=== PATIENT | female | born 1985 | race Caucasian/White ===

== ENCOUNTER 2019-11-24 16:54 | Emergency (ER) | payer BC ==
--- OUTSIDE RECORDS SUMMARY | 2019-11-24 16:57 | XMS REPORT ---
:1985 [facility] Address [address] [place] [address] [place] [id number] Care Team Providers Name Role Phone Unavailable Unavailable Unavailable Problems This patient has no known problems. Allergies, Adverse Reactions, Alerts This patient has no known allergies or adverse reactions. Medications This patient has no known medications. Encounters Start End Encounter Admission Attending Care Care Encounter Date/Time Date/Time Type Type Clinicians Facility Department ID 2019-03-10 2019-03-10 Emergency E [facility] [id number] 09:36:00 09:36:00 Results Test Description Test Time Test Comments Text Results Atomic Results Result Comments ENTEROVIRUS PCR 2019-06-14 09:10:00 Test Item Value Reference Range Comments ENTEROVIRUS PCR (test Negative Negative No Enteroviral RNA Detected.This test code=ENTEROVPCR) was developed and its performance characteristicsdetermined by [employer]. It has not been cleared or approvedby the Food and Drug Administration. The FDA hasdetermined that such clearance or approval is notnecessary.Performed At: [address] [id number] Gutierrez MD Ph:[phone] Spec Comments: CSF- SP FLUORO [id number] 14:17:00Patient Name: LEEROY TOMPKINS Unit No: [id number] EXAMS: CPT CODE: [id number] SP FLUORO NDL [id number] PROCEDURE: Fluoroscopic guided diagnostic lumbar puncture one view RADIOLOGIST: Real So M.D. CLINICAL INDICATION: Pseudotumor cerebri COMPARISON: 12/25/2016 LOCATION: W1 TOTAL FLUOROSCOPY TIME: 47 seconds DESCRIPTION OF PROCEDURE: The patient was prepped and draped on the fluoroscopy table in the usual sterile fashion. One-percent lidocaine was administered for local anesthesia. Using fluoroscopic guidance, a 22- gauge spinal needle was advanced into the thecal sac at L3-4. Opening pressure, obtained in the prone position, measured 8 cm of water. [id number] cc of clear spinal fluid were removed and sent to the laboratory for the requested studies. There were no periprocedural complications. IMPRESSION: Technically successful fluoroscopic guided lumbar puncture. Electronically Signed by REAL SO M.D. on at 1417 Reported and signed by: REAL SO M.D. CC: Johny Reynolds MD Technologist: Joseph Valentin Fluoro Time: DAP (Gy m2): Air Kerma (mGy): Trscr Dt/Tm: 06/09/2019 (4478) by:[email or web address] Printed Date/Time: 06/09/2019 (3227) Name: LEEROY TOMPKINS [facility] Phys: Johny Kelly MD [address] : 1985 Age: 33 Sex: F [place] [id number] Loc: P.SRG Exam Date: 06/09/2019 Status: REG [facility] PH: FAX: PAGE 1 Signed Report- SP PUNCTURE LUMBAR [id number] 14:16:00Patient Name: LEEROY TOMPKINS Unit No: [id number] EXAMS: CPT CODE: [id number] [place] [id number] PROCEDURE: Fluoroscopic guided diagnostic lumbar puncture one view RADIOLOGIST: Real So M.D. CLINICAL INDICATION: Pseudotumor cerebri COMPARISON: 12/25/2016 LOCATION: W1 TOTAL FLUOROSCOPY TIME: 47 seconds DESCRIPTION OF PROCEDURE: The patient was prepped and draped on the fluoroscopy table in the usual sterile fashion. One-percent lidocaine was administered for local anesthesia. Using fluoroscopic guidance, a 22- gauge spinal needle was advanced into the thecal sac at L3-4. Opening pressure, obtained in the prone position, measured 8 cm of water. [id number] cc of clear spinal fluid were removed and sent to the laboratory for the requested studies. There were no periprocedural complications. IMPRESSION: Technically successful fluoroscopic guided lumbar puncture. Electronically Signed by REAL SO M.D. on at 1416 Reported and signed by: REAL SO M.D. CC: Johny Reynolds MD Technologist: Joseph Santoro Time: DAP (Gy m2): Air Kerma (mGy): Trscr Dt/Tm: 06/09/2019 (1416) by:[email or web address] Printed Date/Time: 06/09/2019 (4149) Name: LEEROY TOMPKINS [facility] Phys: Johny Kelly MD [address] : 1985 Age: 33 Sex: F [place] [id number] Loc: P.SRG Exam Date: 06/09/2019 Status: REG [facility] PH: FAX: PAGE 1 Signed ReportBASIC METABOLIC [id number] 12:19:00 Test Item Value Reference Range Comments SODIUM (test code=NA) 141 MMOL/L 136-143 POTASSIUM (test code=K) 4.2 MMOL/L 3.5-5.1 CHLORIDE (test code=CL) 105 MMOL/L 98-107 CARBON DIOXIDE (test 27 mmol/L 24-31 code=CO2) GLUCOSE (test code=GLU) 79 mg/dL 70-104 BLOOD UREA NITROGEN (test 8.6 MG/DL 7.0-21.0 code=BUN) GLOMERULAR FILTRATION >=60 max estimate >60 The estimated glomerular RATE (test code=GFR) filtration rate is computed usingpatient race, age (>18), sex, and serum creatinine. If anyof the needed data elements are missing the Laboratory cannot compute an estimation of the glomerular filtration rate. CREATININE (test 0.8 mg/dL 0.8-1.5 code=CREAT) CALCIUM (test code=CA) 9.0 mg/dL 8.8-10.2 Spec Comments: PREOPDATE OF LAST MENSTRUAL PERIOD: 05/20/19HCG SERUM [id number] 12:19:00 Test Item Value Reference Range Comments HCG SERUM QUAL (test code=HCGQL) NEGATIVE NEGATIVE Spec Comments: PREOPDATE OF LAST MENSTRUAL PERIOD: 05/20/19BASIC METABOLIC [id number] 12:18:00 Test Item Value Reference Range Comments SODIUM (test code=NA) 141 MMOL/L 136-143 POTASSIUM (test code=K) 4.2 MMOL/L 3.5-5.1 CHLORIDE (test code=CL) 105 MMOL/L 98-107 CARBON DIOXIDE (test 27 mmol/L 24-31 code=CO2) GLUCOSE (test code=GLU) 79 mg/dL 70-104 BLOOD UREA NITROGEN (test 8.6 MG/DL 7.0-21.0 code=BUN) GLOMERULAR FILTRATION >=60 max estimate >60 The estimated glomerular RATE (test code=GFR) filtration rate is computed usingpatient race, age (>18), sex, and serum creatinine. If anyof the needed data elements are missing the Laboratory cannot compute an estimation of the glomerular filtration rate. CREATININE (test 0.8 mg/dL 0.8-1.5 code=CREAT) CALCIUM (test code=CA) 9.0 mg/dL 8.8-10.2 Spec Comments: PREOPDATE OF LAST MENSTRUAL PERIOD: 05/20/19HCG SERUM [id number] 12:18:00 Test Item Value Reference Range Comments HCG SERUM QUAL (test code=HCGQL) NEGATIVE Spec Comments: PREOPDATE OF LAST MENSTRUAL PERIOD: 05/20/19CBC W/AUTO [id number] 12:04:00 Test Item Value Reference Range Comments WHITE BLOOD CELL (test code=WBC) 4.8 x10 3/uL 4.8-10.8 RED BLOOD CELL (test code=RBC) 4.39 x10 6/uL 4.20-5.40 HEMOGLOBIN (test code=HGB) 13.4 g/dL 14.5-20 HEMATOCRIT (test code=HCT) 40.3 % 37.0-47.0 MEAN CELL VOLUME (test code=MCV) 91.8 fL 81.0-99.0 MEAN CELL HGB (test code=MCH) 30.5 pg 27-31 MEAN CELL HGB CONCENTRATION (test code=MCHC) 33.3 G/DL 33-36.5 RED CELL DISTRIBUTION WIDTH (test code=RDW) 11.8 % 12.9-16.9 PLATELET COUNT (test code=PLT) 258 150-440 MEAN PLATELET VOLUME (test code=MPV) 10.9 fL 8.9-12.4 NEUTROPHIL % (test code=NT%) 49.5 % 42.2-75.2 LYMPHOCYTE % (test code=LY%) 40.3 % 20.5-51.1 MONOCYTE % (test code=MO%) 7.1 % 1.7-9.3 EOSINOPHIL % (test code=EO%) 2.5 % 0.0-7.0 BASOPHIL % (test code=BA%) 0.4 % 0-2.5 NEUTROPHIL # (test code=NT#) 2.36 x10 3/uL 1.80-7.70 LYMPHOCYTE # (test code=LY#) 1.92 x10 3/uL 1.00-4.80 MONOCYTE # (test code=MO#) 0.34 x10 3/uL 0.00-0.80 EOSINOPHIL # (test code=EO#) 0.12 x10 3/uL 0.00-0.45 BASOPHIL # (test code=BA#) 0.02 x10 3/uL 0.0-0.20 CT BRAIN [id number] 17:11:15CLINICAL INDICATION: G43.909 Migraine, unsp, not intractable, without status migrainosusMODALITY: [employer] CT (Iterative dose reduction techniques are utilized.) TECHNIQUE: Noncontrast CT scanning was obtained through the brain. No intravenous contrast was administered. Brain and soft tissue windows are formatted. 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 The right lateral ventricle is slightlypreferentially decompressed. Ventricular size is slightly decreased to stable when compared to priorMRI before shunting. Note that there was no ventriculomegaly before shunting.There are no acute infarcts, hemorrhages or extra-axial fluid collections.There are no mass lesions. There are no focal areas of edema or shift of midline structures.There are no significant white matter lesions.Sella, parasellar structures, craniocervical junction and internal auditory canals are within normal limits on noncontrast CT imaging.The brainstem and cerebellum are unremarkable.Extracranial soft tissues are unremarkable.
[2019-11-24 18:52] LABS: ALT/SGPT 25 U/L (12-78); AST/SGOT 14 U/L (15-37); Albumin 3.5 g/dL (3.4-5.0); Alkaline Phosphatase 61 U/L (45-117); BUN Blood Urea Nitrogen 17 mg/dL (7-18); Bicarbonate 26 mmol/L (21-32); Bilirubin Direct < 0.1 mg/dL (0-0.2); Bilirubin Total 0.2 mg/dL (0.2-1.0); Glucose Level 78 mg/dL (74-106); Lipase 218 U/L (73-393); Potassium 3.5 mmol/L (3.5-5.1); Protein, Total 7.5 g/dL (6.4-8.2); Sodium Level 142 mmol/L (136-145)
[2019-11-24 18:58] LABS: Absolute Lymphocytes (CBC) 3.1 K/uL (0.7-4.9); Basophils % 0.8 % (0-1.3); Hematocrit 42.4 % (36.0-45.0); Lymphocytes % 42.5 % (15.3-44.8); MPV 8.9 fL (7.6-11.3); RBC Red Blood Cell Count 4.71 M/uL (3.86-4.86)
[2019-11-24 19:07] LABS: Urine Blood NEGATIVE (NEG); Urine Glucose NEGATIVE (NEG); Urine Protein NEGATIVE (NEG); Urine Specific Gravity 1.025 (1.005-1.030); Urine pH 5.5 (5.0-7.0)
[2019-11-24] MEDS ORDERED: ONDANSETRON 4 MG/2 ML VIAL ONE (19:31)
[2019-11-24] MEDS ORDERED: MORPHINE 4 MG/ML SYR ONE (19:31)
[2019-11-24 19:47] LABS: Blood Morphology Comment NOT SEEN (NOT SEEN); Platelet Estimate ADEQ
--- NOTE | 2019-11-24 22:10 | EDPHYS ---
Physician Documentation [facility] Name: Kamille Bojorquez Age: 34 yrs Sex: Female : 1985 Arrival Date: 11/24/2019 Time: 16:56 Bed 26 Private MD: ED Physician Nik Goldstein HPI: 11/24 18:09 This 34 yrs old Female presents to ER via Ambulatory with complaints of pm1 Abdominal Pain. 18:09 The patient presents with abdominal pain. pm1 18:09 Onset: The symptoms/episode began/occurred 2-3 months ago and worse the past few days pm1 with nausea, vomiting, and diarrhea. Patient noticed that pain is worse after eating food. The symptoms do not radiate. Associated signs and symptoms: Pertinent positives: nausea, vomiting, and diarrhea, Pertinent negatives: chest pain, dysuria, fever, shortness of breath. The symptoms are described as crampy. Modifying factors: The symptoms are alleviated by nothing, the symptoms are aggravated by food. Severity of pain: in the emergency department the pain has improved. The patient has not recently seen a physician. 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 - Social history:: Smoking status: Patient/guardian denies using tobacco. - Ebola Screening: : No symptoms or risks identified at this time. ROS: 18:09 Constitutional: Negative for fever, chills, and weight loss, Eyes: Negative for injury, pm1 pain, redness, and discharge, ENT: Negative for injury, pain, and discharge, Neck: Negative for injury, pain, and swelling, Cardiovascular: Negative for chest pain, palpitations, and edema, Respiratory: Negative for shortness of breath, cough, wheezing, and pleuritic chest pain. 18:09 Back: Negative for injury and pain, : Negative for injury, bleeding, discharge, and swelling, MS/Extremity: Negative for injury and deformity, Skin: Negative for injury, rash, and discoloration, Neuro: Negative for headache, weakness, numbness, tingling, and seizure. 18:09 Abdomen/GI: Positive for abdominal pain, nausea, vomiting, and diarrhea, Negative for constipation. Exam: 18:09 Constitutional: This is a well developed, well nourished patient who is awake, alert, pm1 and in no acute distress. Head/Face: Normocephalic, atraumatic. Neck: Trachea midline, no thyromegaly or masses palpated, and no cervical lymphadenopathy. Supple, full range of motion without nuchal rigidity, or vertebral point tenderness. No Meningismus. Chest/axilla: Normal chest wall appearance and motion. Nontender with no deformity. No lesions are appreciated. Cardiovascular: Regular rate and rhythm with a normal S1 and S2. No gallops, murmurs, or rubs. Normal PMI, no JVD. No pulse deficits. Respiratory: Lungs have equal breath sounds bilaterally, clear to auscultation and percussion. No rales, rhonchi or wheezes noted. No increased work of breathing, no retractions or nasal flaring. 18:09 Back: No spinal tenderness. No costovertebral tenderness. Full range of motion. Skin: Warm, dry with normal turgor. Normal color with no rashes, no lesions, and no evidence of cellulitis. MS/ Extremity: Pulses equal, no cyanosis. Neurovascular intact. Full, normal range of motion. 18:09 Abdomen/GI: Inspection: abdomen appears normal, Bowel sounds: normal, Palpation: soft, mild abdominal tenderness, in the right upper quadrant, mass, is not appreciated, rebound tenderness, is not appreciated. 18:09 Neuro: Orientation: is normal, Mentation: is normal, Motor: moves all fours. Vital Signs: 17:01 BP 133 / 97; Pulse 80; Resp 16 S; Temp 98.5(O); Pulse Ox 100% on R/A; Weight 104.33 kg aa5 (R); Height 5 ft. 5 in. (165.10 cm) (R); Pain 4/10; 18:36 BP 142 / 96; Pulse 78; Resp 17; Pulse Ox 100% on R/A; rv 19:07 BP 135 / 96; Pulse 79; Resp 18; Pulse Ox 100% on R/A; mg2 20:43 Pulse 70; Resp 18; Pulse Ox 100% on R/A; mg2 17:01 Body Mass Index 38.27 (104.33 kg, 165.10 cm) aa5 MDM: 18:07 Patient medically screened. kay 22:08 Data reviewed: vital signs. Data interpreted: Pulse oximetry: on room air is 100 %. pm1 Interpretation: normal. Counseling: I had a detailed discussion with the patient and/or guardian regarding: the historical points, exam findings, and any diagnostic results supporting the discharge/admit diagnosis, lab results, radiology results, the need for outpatient follow up, for definitive care, a operations clerk, to return to the emergency department if symptoms worsen or persist or if there are any questions or concerns that arise at home. 11/24 18:06 Order name: Basic Metabolic Panel pm1 11/24 18:06 Order name: CBC with Diff pm1 11/24 18:06 Order name: Creatinine for Radiology; Complete Time: 18:52 pm1 11/24 18:06 Order name: Hepatic Function; Complete Time: 18:52 pm1 11/24 18:06 Order name: Lipase; Complete Time: 18:52 pm1 11/24 18:07 Order name: Basic Metabolic Panel; Complete Time: 18:52 EDMS 11/24 18:07 Order name: CBC with Automated Diff; Complete Time: 21:41 EDMS 11/24 18:45 Order name: Urine Dipstick--Ancillary (enter results); Complete Time: 19:22 eb 11/24 18:45 Order name: Urine --Ancillary (enter results); Complete Time: 19:22 eb 11/24 19:47 Order name: Manual Differential; Complete Time: 21:41 EDMS 11/24 20:35 Order name: CT Abd/Pelvis - Without Contrast pm1 11/24 20:37 Order name: US Abdomen Limited pm1 11/24 18:06 Order name: IV Saline Lock; Complete Time: 18:34 pm1 11/24 18:06 Order name: Labs collected and sent; Complete Time: 18:34 pm1 11/24 18:06 Order name: Urine Dipstick-Ancillary (obtain specimen); Complete Time: 18:34 pm1 11/24 18:06 Order name: Urine Test (obtain specimen); Complete Time: 18:34 pm1 Administered Medications: 19:33 Drug: Zofran 4 mg Route: IVP; Site: left antecubital; mg2 20:30 Follow up: Response: No adverse reaction; Marked relief of symptoms mg2 19:34 Drug: morphine 4 mg Route: IVP; Site: left antecubital; mg2 20:30 Follow up: Response: No adverse reaction; Marked relief of symptoms mg2 22:22 Drug: GI Cocktail without - (Maalox Suspension 30 ml, Lidocaine Liquid 2 % 15 aa1 ml) Route: PO; 22:32 Follow up: Response: No adverse reaction; Medication administered at discharge. aa1 Disposition: 11/24/19 22:09 Discharged to Home. Impression: Unspecified abdominal pain. - Condition is Fair. - Discharge Instructions: Abdominal Pain, Adult. - Prescriptions for Bentyl 20 mg Oral Tablet - take 1 tablet by ORAL route every 6 hours As needed; 20 tablet. Pepcid 20 mg Oral Tablet - take 1 tablet by ORAL route every 12 hours for 10 days; 20 tablet. - Medication Reconciliation Form, Thank You Letter, Antibiotic Education, Prescription Opioid Use form. - Follow up: Emergency Department; When: As needed; Reason: Worsening of condition. Follow up: Private Physician; When: 2 - 3 days; Reason: Recheck today's complaints, Continuance of care, Re-evaluation by your physician. - Problem is new. - Symptoms have improved. Addendum: 11/27/2019 08:17 Co-signature as Attending Physician, Nik Goldstein MD I agree with the assessment and c palacios plan of care. Signatures: Dispatcher [employer] EDMS Yanet Kaplan RN RN aa1 Nik Goldstein MD MD cha Calderon, Audri, RN RN aa5 Caleb Last NP ARRANGING FUNERAL DIRECTOR pm1 Frankie Thacker RN RN mg2 Corrections: (The following items were deleted from the chart) 11/24 22:33 22:09 11/24/2019 22:09 Discharged to Home. Impression: Unspecified abdominal pain. aa1 Condition is Fair. Forms are Medication Reconciliation Form, Thank You Letter, Antibiotic Education, Prescription Opioid Use. Follow up: Emergency Department; When: As needed; Reason: Worsening of condition. Follow up: Private Physician; When: 2 - 3 days; Reason: Recheck today's complaints, Continuance of care, Re-evaluation by your physician. Problem is new. Symptoms have improved. pm1
--- NOTE | 2019-11-24 22:10 | ER ---
Nurse's Notes [facility] Name: Kamille Bojorquez Age: 34 yrs Sex: Female : 1985 Arrival Date: 11/24/2019 Time: 16:56 Bed 26 Private MD: Diagnosis: Unspecified abdominal pain Presentation: 11/24 16:59 Presenting complaint: Patient states: RUQ pain that began months ago but getting worse aa5 over the last week. Pt also reports nausea/vomiting began 2 days ago, also reports some diarrhea. Transition of care: patient was not received from another setting of care. Onset of symptoms was October 2019. Risk Assessment: Do you want to hurt yourself or someone else? Patient reports no desire to harm self or others. Initial Sepsis Screen: Does the patient meet any 2 criteria? No. Patient's initial sepsis screen is negative. Does the patient have a suspected source of infection? No. Patient's initial sepsis screen is negative. Care prior to arrival: None. 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 - Social history:: Smoking status: Patient/guardian denies using tobacco. - Ebola Screening: : No symptoms or risks identified at this time. Screenin:35 Abuse screen: Denies threats or abuse. Denies injuries from another. Nutritional rv screening: No deficits noted. Tuberculosis screening: No symptoms or risk factors identified. Fall Risk None identified. Assessment: 18:35 General: Appears in no apparent distress. comfortable, Behavior is calm, cooperative. rv Pain: Complains of pain in abdomen. Neuro: Level of Consciousness is awake, alert, obeys commands, Oriented to person, place, time, situation. Cardiovascular: Patient's skin is warm and dry. Respiratory: Airway is patent. GI: Bowel sounds present X 4 quads. Abd is soft and non tender X 4 quads. 19:34 Reassessment: Patient appears in no apparent distress at this time. Patient and/or mg2 family updated on plan of care and expected duration. Pain level reassessed. Patient is alert, oriented x 3, equal unlabored respirations, skin warm/dry/pink. patient in pain. pain medicine given. 20:43 Reassessment: Patient appears in no apparent distress at this time. Patient and/or mg2 family updated on plan of care and expected duration. Pain level reassessed. Patient is alert, oriented x 3, equal unlabored respirations, skin warm/dry/pink. patient informed the order for ct scan. she agreed. 22:33 Reassessment: Patient appears in no apparent distress at this time. Patient is alert, aa1 oriented x 3, equal unlabored respirations, skin warm/dry/pink. Discussed d/c \T\ f/u instructions with pt; denies questions or concerns at this time. Ambulatory to lobby with steady gait. Vital Signs: 17:01 BP 133 / 97; Pulse 80; Resp 16 S; Temp 98.5(O); Pulse Ox 100% on R/A; Weight 104.33 kg aa5 (R); Height 5 ft. 5 in. (165.10 cm) (R); Pain 4/10; 18:36 BP 142 / 96; Pulse 78; Resp 17; Pulse Ox 100% on R/A; rv 19:07 BP 135 / 96; Pulse 79; Resp 18; Pulse Ox 100% on R/A; mg2 20:43 Pulse 70; Resp 18; Pulse Ox 100% on R/A; mg2 17:01 Body Mass Index 38.27 (104.33 kg, 165.10 cm) aa5 ED Course: 16:56 Patient arrived in ED. jg7 16:59 Arm band placed on. aa5 17:00 Triage completed. aa5 18:06 Caleb Last NP is PHCP. pm1 18:06 Nik Goldstein MD is Attending Physician. pm1 18:30 Frankie Thacker RN is Primary Nurse. mg2 18:34 Inserted saline lock: 22 gauge in left antecubital area, using aseptic technique. Blood rv collected. Missed attempt(s): 20 gauge in right antecubital area. 18:36 Patient has correct armband on for positive identification. Pulse ox on. NIBP on. rv 19:07 No provider procedures requiring assistance completed. mg2 20:00 Basic Metabolic Panel Sent. jp3 20:00 CBC with Diff Sent. jp3 21:00 US Abdomen Limited In Process Unspecified. EDMS 21:00 CT Abd/Pelvis - Without Contrast In Process Unspecified. EDMS 22:33 IV discontinued, intact, bleeding controlled, No redness/swelling at site. Pressure aa1 dressing applied. Administered Medications: 19:33 Drug: Zofran 4 mg Route: IVP; Site: left antecubital; mg2 20:30 Follow up: Response: No adverse reaction; Marked relief of symptoms mg2 19:34 Drug: morphine 4 mg Route: IVP; Site: left antecubital; mg2 20:30 Follow up: Response: No adverse reaction; Marked relief of symptoms mg2 22:22 Drug: GI Cocktail without - (Maalox Suspension 30 ml, Lidocaine Liquid 2 % 15 aa1 ml) Route: PO; 22:32 Follow up: Response: No adverse reaction; Medication administered at discharge. aa1 Outcome: 22:09 Discharge ordered by . pm1 22:33 Discharged to home ambulatory. aa1 22:33 Condition: good 22:33 Discharge instructions given to patient, Instructed on discharge instructions, follow up and referral plans. medication usage, Demonstrated understanding of instructions, follow-up care, medications, Prescriptions given X 2. 22:33 Patient left the ED. aa1 Signatures: Dispatcher [employer] EDRI Yanet Kaplan RN RN aa1 Mary Chance RN RN aa5 Caleb Last, [employer]PER [employer] pm1 Frankie Thacker RN RN mg2 Rubén Manzano RN RN rv Sanchez Mazariegos jp3 Stacy Hatchg7
[2019-11-24] MEDS ORDERED: MAGNE/ALUM HYDROXD 30 ML UCUP ONE (22:25)
[2019-11-24] MEDS ORDERED: LIDOCAINE VISCOUS 2% SOLN 15 ML UDC ONE (22:25)
[2019-11-24 23:21] VITALS: TEMP 98.5; O2SAT 100
[2019-11-24 23:23] VITALS: BP 135/96
--- NOTE | 2019-11-25 07:52 | RAD REPORT ---
EXAM DESCRIPTION: US - Abdomen Exam Limited - 11/24/2019 8:59 pm CLINICAL HISTORY: RUQ pain COMPARISON: Abdomen Pelvis Wo Contrast dated 11/24/2019 FINDINGS: No gallstones, sludge or other abnormalities within the gallbladder lumen. There is no wal l thickening or pericholecystic fluid. No common duct stone or biliary tree dilatation identified. IMPRESSION: Normal gallbladder and biliary tree ultrasound.
--- NOTE | 2019-11-27 11:18 | RAD REPORT ---
EXAM DESCRIPTION: CT - Abdomen Pelvis Wo Contrast - 11/25/2019 8:16 am CLINICAL HISTORY: ABD PAIN TECHNIQUE: Axial computed tomography images of the abdomen and pelvis without intravenous contrast. Sagittal and coronal reformatted images were created and reviewed. This CT exam was performed usi ng one or more of the following dose reduction techniques: automated exposure control, adjustment o f the mA and/or kV according to patient size, and/or use of iterative reconstruction technique. COMPARISON: No relevant prior studies available. FINDINGS: Lung bases: Unremarkable. No mass. No consolidation. ABDOMEN: Liver: Unremarkable. Gallbladder and bile ducts: Unremarkable. No calcified stones. No ductal dilation. Pancreas: Unremarkable. No ductal dilation. Spleen: Unremarkable. No splenomegaly. Adrenals: Unremarkable. No mass. Kidneys and ureters: Unremarkable. No obstructing stones. No hydronephrosis. Stomach and bowel: Gastric bypass changes present. No obstruction. No mucosal thickening. PELVIS: Appendix: The appendix is well-seen and appears normal. Bladder: Unremarkable. No stones. Reproductive: There is a 2.4 x 2.4 x 2.6 cm right ovarian cyst. ABDOMEN and PELVIS: Intraperitoneal space: Unremarkable. No free air. No significant fluid collection. Bones/joints: No acute fracture. No dislocation. Soft tissues: Unremarkable. Vasculature: Unremarkable. No abdominal aortic aneurysm. Lymph nodes: Unremarkable. No enlarged lymph nodes. Tubes, lines and devices: There is a peritoneal shunt in the right upper quadrant. No fluid co llection noted adjacent to the tip. IMPRESSION: 1. There is a 2.4 x 2.4 x 2.6 cm right ovarian cyst. No further evaluation needed. 2. No inflammatory process noted. Electronically signed by: Anisha Reece MD 11/24/2019 9:37 PM [employer]CTOR [employer]IC [employer] Due to temporary technical issues with the PACS/Fluency reporting system, reports are being signed by the in house radiologist as a courtesy to ensure prompt reporting. The interpreting radiologist is f maloriely responsible for the content of the report.
== END 2019-11-24 22:33 | disposition home or self-care (01) ==
LOC: ER 16:54
DX: R10.9 Unspecified abdominal pain (principal); R11.2 Nausea with vomiting, unspecified
CPT/HCPCS: 85025; 80048; 36415; 81025; 80076; 81003; 83690; 74176; 76705; 96375; 96374; 99284; J2405

== ENCOUNTER 2023-04-12 13:55 | Emergency (ER) | payer BC ==
--- OUTSIDE RECORDS SUMMARY | 2023-04-12 14:00 | XMS REPORT | Continuity of Care Document ---
:1985 Author Organization [facility] t Address [address] [place] [address] [place] [id number] Care Team Providers Name Role Phone Mala Callaway MD Primary Care Physician JOHN_Rik Attending Clinician Unavailable STEPHANIE_XAVIER_Rashard_William Attending Clinician Unavailable Kathia Dalton Attending Clinician [phone] Mala Callaway Attending Clinician [phone] Preethi Wetzel Attending Clinician [phone] JOHN_Rik Admitting Clinician Unavailable STEPHANIE_XAVIER_Rashard_William Admitting Clinician Unavailable Payers Payer Name Policy Type Policy Number Effective Date Expiration Date S hen[place] [id number] 2017 00:00:00 [place]: [employer] [id number] [facility] ACCESS Problems Condition Condition Condition Status Onset Resolution Last Treating Co mments Source Name Details Category Date Date Treatment Clinician Date Xerostomia Xerostomia Problem Active S [facility] 2-15 [facility] 00:00: ty [facility] Pain of Pain of Problem Active [place] skin Skin 2-15 Communi 00:00: ty 00 [facility] Neck pain Neck Pain Problem Active [facility] nicola 1-05 [facility]i 00:00: ty 00 [facility] 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 00:00: ty disorder [facility] Insomnia Insomnia Problem Active [facility] 1-13 Communi 00:00: ty 00 [facility] Long-term Long-term Problem Active [facility] drug Drug 9-23 Communi therapy Therapy 00:00: ty 00 [facility] Pain in Pain in Problem Active [place] right hand Right Hand 6-15 Co mmuni 00:00: ty 00 [facility] Cellulitis Cellulitis Problem Active 2019-11 S [facility]en[facility] 0-06 Communi 00:00: ty 00 [facility] Allergic Allergic Problem Active 2019-11 [facility] reaction Reaction 0-06 Commun i 00:00: ty 00 [facility] Palpitatio Palpitatio Problem Active [facility] ns ns 6-23 [facility]i 00:00: ty [facility] Essential Essential Problem Active [facility] hypertensi Hypertensi 6-18 Co m[facility]i on on 00:00: ty 00 [facility] Headache Headache Problem Active [facility] y 6-18 Communi 00:00: ty 00 [facility] 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 6-18 Co m[facility]i intracrani Intracrani 00:00: ty al al 00 Hospita hypertensi Hypertensi l on on Clinics Nausea Nausea Problem Active [place] 1-21 Communi 00:00: ty 00 [facility] Diarrhea Diarrhea Problem Active [facility] 1-21 Communi 00:00: ty 00 [facility] Right Right Problem Active [place] upper Upper 1-21 Communi quadrant Quadrant 00:00: ty pain Pain 00 [facility] Cough Cough Problem Active 2018-11 [place] 2-31 Communi 00:00: ty 00 [facility] Electrocar Electrocar Problem Active 2019- S [facility] diogram diogram 1-25 Communi abnormal Abnormal 00:00: ty 00 [facility] 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 1-01 st al al 00:00: Hospita hypertensi hypertensi 00 l on on Low back Low Back Problem Active [facility] pain Pain 9-10 Communi 00:00: ty 00 Hospita l Clinics Acute Acute Problem Active [place] pharyngiti Pharyngiti 4-22 Co mmuni s s 00:00: ty 00 [facility] Subjective Subjective Problem Active [facility] visual Visual 08-11 Medical disturbanc Disturbanc 00:00: e e 00 Photopsia Photopsia Problem Active [facility] via 08-11 Medical 00:00: 00 Localized Localized Problem Active [facility] visual Visual 08-11 Medical field Field 00:00: defect Defect 00 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 Disorder 08-11 Medica l 00:00: 00 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 Malfunctio 00 n n Retinal Retinal Problem Active [facility] venous Venous 4-14 Medical engorgemen Engorgemen 00:00: t t 00 Physiologi Physiologi Problem Active [facility] c c 4-14 Medical anisocoria Anisocoria 00:00: 00 Tinnitus Tinnitus Problem Active [facility] 1-11 Medical 00:00: 00 Dizziness Dizziness Problem Active [facility] via 11-25 Medical 00:00: 00 Nerve Nerve Problem Active 2015-11 [facility] fiber Fiber 12-24 Medical bundle Bundle 00:00: defect Defect 00 Diplopia Diplopia Problem Active 2015-11 [facility] 2- Medical 00:00: 00 Dry eyes Dry Eyes Problem Active 2015-11 [facility] 2- Medical 00:00: 00 Papilledem Papilledem Problem Active 2015-11 [facility] a - optic a - Optic - Medi felisha disc edema Disc Edema 00:00: due to Due to 00 raised Raised intracrani Intracrani al al pressure Pressure Bilateral Bilateral Problem Active 2015-11 [facility] via tinnitus Tinnitus 12-24 Medica l 00:00: 00 Optic disc Optic Disc Problem Active 2015-11 [facility] edema Edema 0- Medical 00:00: 00 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 [facility]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 Intracrani 0-05 Me dical al al 00:00: hypertensi Hypertensi 00 on on 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 0-05 Me dical 00:00: 00 Hazy Hazy Problem Active 2015-11 [facility] vision Vision 0-05 Medical 00:00: 00 Disorder Disorder Problem Active 2015-11 [facility] of optic of Optic 0-05 Medica l nerve Nerve 00:00: 00 Convergenc Convergenc Problem Active 2015-11 [facility] e e 0-05 Medical insufficie Insufficie 00:00: ncy ncy 00 Eyes Eyes Problem Active 2015-11 [facility] sensitive Sensitive 0-05 Medi felisha to light to Light 00:00: 00 Headache Headache Problem Active 2015-11 [facility] 0-05 Medical 00:00: 00 Allergies, Adverse Reactions, Alerts Allergy Allergy Status Severity Reaction(s) Onset Inactive Treating Comm ents Source Name Type Date Date Clinician Iodinate Propensi Active Anaphylaxis 2018-11 M ethodi d ty to 11-29 st Contrast adverse 00:00: Hospita Media reaction 00 l s to drug Iodine Propensi Active Other (See IV Meth rafa And ty to Comments) 06-16 iodine- st Iodide adverse 00:00: itching Hospita Containi reaction 00 and l ng s to swelling Products drug (per pt only IV) Sulfa Propensi Active Rash [facility] (Sulfona ty to 06-16 st mide adverse 00:00: Hospita Antibiot reaction 00 l ics) s to drug Sulfamet Propensi Active Rash Method i hoxazole ty to 3-10 st -Trimeth adverse 00:00: Hospita oprim reaction 00 l s to drug IODINATE Allergy Active Fatal Anaphylaxis [place] D to Communi CONTRAST substanc ty MEDIA e Hospita l Clinics SULFA Allergy Active Moderate Rash [place] (SULFONA to to severe Commu ni MIDE substanc ty ANTIBIOT e Hospita ICS) l Clinics Bactrim Allergy Active [facility] to Medical substanc e Iodine Allergy Active [facility] to Medical substanc e Family History Family Member Diagnosis Comments Start Date Stop Date Source Natural mother Pulmonary embolism [facility] Natural mother Hypertension [facility] Natural father Hemochromatosis [facility] Natural father Hyperlipidemia Method [facility] Natural father Hypertension [facility] Social History Social Habit Start Date Stop Date Quantity Comments Source Gender [facility] Sexual orientation [facility] Alcohol intake 2019-09-29 2019-09-29 Lifetime [facility] 00:00:00 00:00:00 non-drinker Hospital (finding) History of Social 2019-09-29 2019-09-[address] function 00:00:00 00:00:00 Hospital Tobacco use and 2019-06-16 2019-06-16 Smokeless [facility] exposure 00:00:00 00:00:00 tobacco non-user Hospital Sex Assigned At [birth year] [facility] 00:[facility] Smoking Status Start Date Stop Date Source Never smoked tobacco [facility] Medications Ordered Filled Start Stop Current Ordering Indication Dosage Frequency Signature Comments Components Source Medication Medication Date Date Medication? Clinician (SIG) Name Name testosteron testosteron No testostero [place] e 100 mg e 100 mg 07-16 ne 100 mg Co [facility] implant implant 09:53: implant ty pelletTake pelletTake 06 pelletTake Hospita 162.5 mg by 162.5 mg by 162.5 mg l implantatio implantatio by C linics n route. n route. implantati on route. norethindro 2018-11 Yes QD Take by Met hodi ne-e.estrad 1-[address] iol-iron 11:03: nightly. Hospi ta (BLISOVI 24 17 l FE ORAL) ALPRAZolam 2018-11 Yes .5mg Take 0.5 Met hodi (XANAX) 0.5 1-[address] MG tablet 11:03: mouth as Hosp edmund 17 needed for l anxiety. ibuprofen ibuprofen No ibuprofen [facility] 800mg once 800mg once 9-27 800mg once Medical a day a day 00:00: a day 00 ondansetron ondansetron No ondansetro [place] HCl 8 mg HCl 8 mg n HCl 8 mg C ommuni tablet Take tablet Take tablet ty 1 tablet 1 tablet Take 1 Hospi ta every 8 every 8 tablet l hours by hours by every 8 Clin ics oral route oral route hours by as needed. as needed. oral route as needed. topiramate topiramate No topiramate [place] 50 mg 50 mg 50 mg Communi tablet TAKE tablet TAKE tablet ty ONE (1) ONE (1) TAKE ONE Hospi ta TABLET(S) TABLET(S) (1) l BY MOUTH BY MOUTH TABLET(S) Cl inics TWICE A DAY TWICE A DAY BY MOUTH WITH MEALS. WITH MEALS. TWICE A DAY WITH MEALS. Volnea (28) Volnea (28) No Volnea [place] 0.15 0.15 (28) 0.15 Communi mg-0.02 mg mg-0.02 mg mg-0.02 mg ty (21)/0.01 (21)/0.01 (21)/0.01 Hospita mg (5) mg (5) mg (5) l tablet tablet tablet Clinics alprazolam alprazolam No alprazolam [place] 0.5 mg 0.5 mg 0.5 mg Communi tablet TAKE tablet TAKE tablet ty ONE (1) ONE (1) TAKE ONE Hospi ta TABLET(S) TABLET(S) (1) l BY MOUTH BY MOUTH TABLET(S) Cl inics ONCE A DAY ONCE A DAY BY MOUTH NEEDED. NEEDED. ONCE A DAY NEEDED. benzonatate benzonatate No benzonatat [place] 100 mg 100 mg e 100 mg Communi capsule capsule capsule ty TAKE ONE TAKE ONE TAKE ONE Hos felipe (1) (1) (1) l CAPSULE(S) CAPSULE(S) CAPSULE(S) Clinics BY MOUTH BY MOUTH BY MOUTH THREE TIMES THREE TIMES THREE A DAY. A DAY. TIMES A DAY. budesonide- budesonide- No budesonide [place] formoterol formoterol -formotero Communi HFA 80 HFA 80 l HFA 80 ty mcg-4.5 mcg-4.5 mcg-4.5 Hospit a mcg/actuati mcg/actuati mcg/actuat l on aerosol on aerosol ion Cli nics inhaler inhaler aerosol INHALE 2 INHALE 2 inhaler PUFFS TWICE PUFFS TWICE INHALE 2 A DAY BY A DAY BY PUFFS INHALATION INHALATION TWICE A ROUTE FOR ROUTE FOR DAY BY 30 DAYS. 30 DAYS. INHALATION ROUTE FOR 30 DAYS. cyclobenzap cyclobenzap No cyclobenza [place] rine 10 mg rine 10 mg rosa 10 Communi tablet TAKE tablet TAKE mg tablet ty ONE (1) ONE (1) TAKE ONE Hospi ta TABLET(S) TABLET(S) (1) l BY MOUTH AT BY MOUTH AT TABLET(S) Clinics BEDTIME. BEDTIME. BY MOUTH AT BEDTIME. hydrocortis hydrocortis No hydrocorti [place] one 2.5 % one 2.5 % sone 2.5 % Communi topical topical topical ty cream APPLY cream APPLY cream Hospita A THIN A THIN APPLY A l LAYER TO LAYER TO THIN LAYER C linics AFFECTED AFFECTED TO AREA(S) AREA(S) AFFECTED TWICE TWICE AREA(S) DAILY. DO DAILY. DO TWICE NOT USE ON NOT USE ON DAILY. DO FACE. FACE. NOT USE ON FACE. magnesium magnesium No magnesium [place] phosphate phosphate phosphate Communi 400mg daily 400mg daily 400mg ty daily Hospita l Clinics Medrol Medrol No Medrol [place] ([place]) 4 mg (Chapito) 4 mg ([place]) 4 mg Communi tablets in tablets in tablets in ty a dose pack a dose pack a dose Hospita as directed as directed pack as l on package on package directed Clinics on package metoprolol metoprolol No metoprolol [place] succinate succinate succinate Communi ER 100 mg ER 100 mg ER 100 mg ty tablet,exte tablet,exte tablet,ext Hospita nded nded ended l release 24 release 24 release 24 Clinics hr TAKE 2 hr TAKE 2 hr TAKE 2 TABLETS BY TABLETS BY TABLETS BY MOUTH EVERY MOUTH EVERY MOUTH DAY DAY EVERY DAY ondansetron ondansetron No ondansetro [place] 8 mg 8 mg n 8 mg Communi disintegrat disintegrat disintegra ty ing tablet ing tablet ting Hos felipe DISSOLVE DISSOLVE tablet l ONE (1) ONE (1) DISSOLVE Clini cs TABLET(S) TABLET(S) ONE (1) BY MOUTH BY MOUTH TABLET(S) TWICE A DAY TWICE A DAY BY MOUTH NEEDED. NEEDED. TWICE A DAY NEEDED. ondansetron ondansetron No ondansetro [place] HCl 8 mg HCl 8 mg n HCl 8 mg C om[facility]i tablet Take tablet Take tablet ty 1 tablet 1 tablet Take 1 Hospi ta every 8 every 8 tablet l hours by hours by every 8 Clin ics oral route oral route hours by as needed. as needed. oral route as needed. topiramate topiramate No topiramate [place] 50 mg 50 mg 50 mg Communi tablet TAKE tablet TAKE tablet ty ONE (1) ONE (1) TAKE ONE Hospi ta TABLET(S) TABLET(S) (1) l BY MOUTH BY MOUTH TABLET(S) Cl inics TWICE A DAY TWICE A DAY BY MOUTH WITH MEALS. WITH MEALS. TWICE A DAY WITH MEALS. Volnea (28) Volnea (28) No Volnea [place] 0.15 0.15 (28) 0.15 Communi mg-0.02 mg mg-0.02 mg mg-0.02 mg ty (21)/0.01 (21)/0.01 (21)/0.01 Hospita mg (5) mg (5) mg (5) l tablet tablet tablet Clinics alprazolam alprazolam No alprazolam [place] 0.5 mg 0.5 mg 0.5 mg Communi tablet TAKE tablet TAKE tablet ty ONE (1) ONE (1) TAKE ONE Hospi ta TABLET(S) TABLET(S) (1) l BY MOUTH BY MOUTH TABLET(S) Cl inics ONCE A DAY ONCE A DAY BY MOUTH NEEDED. NEEDED. ONCE A DAY NEEDED. Celebrex Celebrex No 1capsul Q1D Celebrex [place] 200 mg 200 mg e(s) 200 mg Communi capsule capsule capsule ty Take 1 Take 1 Take 1 Hospita capsule capsule capsule l every day every day every day Clinics by oral by oral by oral route. route. route. cyclobenzap cyclobenzap No cyclobenza [place] rine 10 mg rine 10 mg rosa 10 Communi tablet TAKE tablet TAKE mg tablet ty ONE TABLET ONE TABLET TAKE ONE Hospita BY MOUTH AT BY MOUTH AT TABLET BY l BEDTIME. as BEDTIME. as MOUTH AT Clinics Needed Needed BEDTIME. as Needed metoprolol metoprolol No metoprolol [place] succinate succinate succinate Communi ER 100 mg ER 100 mg ER 100 mg ty tablet,exte tablet,exte tablet,ext Hospita nded nded ended l release 24 release 24 release 24 Clinics hr TAKE 2 hr TAKE 2 hr TAKE 2 TABLETS BY TABLETS BY TABLETS BY MOUTH EVERY MOUTH EVERY MOUTH DAY DAY EVERY DAY ondansetron ondansetron No ondansetro [place] HCl 8 mg HCl 8 mg n HCl 8 mg C ommuni tablet Take tablet Take tablet ty 1 tablet 1 tablet Take 1 Hospi ta every 8 every 8 tablet l hours by hours by every 8 Clin ics oral route oral route hours by as needed. as needed. oral route as needed. Volnea (28) Volnea (28) No Volnea [place] 0.15 0.15 (28) 0.15 Communi mg-0.02 mg mg-0.02 mg mg-0.02 mg ty (21)/0.01 (21)/0.01 (21)/0.01 Hospita mg (5) mg (5) mg (5) l tablet tablet tablet Clinics alprazolam alprazolam No alprazolam [place] 0.5 mg 0.5 mg 0.5 mg Communi tablet TAKE tablet TAKE tablet ty ONE (1) ONE (1) TAKE ONE Hospi ta TABLET(S) TABLET(S) (1) l BY MOUTH BY MOUTH TABLET(S) Cl inics ONCE A DAY ONCE A DAY BY MOUTH NEEDED. NEEDED. ONCE A DAY NEEDED. cyclobenzap cyclobenzap No cyclobenza [place] rine 10 mg rine 10 mg rosa 10 Communi tablet TAKE tablet TAKE mg tablet ty ONE TABLET ONE TABLET TAKE ONE Hospita BY MOUTH AT BY MOUTH AT TABLET BY l BEDTIME. BEDTIME. MOUTH AT Cli nics BEDTIME. metoprolol metoprolol No metoprolol [place] succinate succinate succinate Communi ER 100 mg ER 100 mg ER 100 mg ty tablet,exte tablet,exte tablet,ext Hospita nded nded ended l release 24 release 24 release 24 Clinics hr TAKE 2 hr TAKE 2 hr TAKE 2 TABLETS BY TABLETS BY TABLETS BY MOUTH EVERY MOUTH EVERY MOUTH DAY DAY EVERY DAY ondansetron ondansetron No ondansetro [place] HCl 8 mg HCl 8 mg n HCl 8 mg C [facility]i tablet TAKE tablet TAKE tablet ty 1 TABLET BY 1 TABLET BY TAKE 1 Hospita MOUTH EVERY MOUTH EVERY TABLET BY l 8 HOURS 8 HOURS MOUTH Cl inics NEEDED NEEDED EVERY 8 HOURS NEEDED Volnea (28) Volnea (28) No Volnea [place] 0.15 0.15 (28) 0.15 Communi mg-0.02 mg mg-0.02 mg mg-0.02 mg ty (21)/0.01 (21)/0.01 (21)/0.01 Hospita mg (5) mg (5) mg (5) l tablet tablet tablet Clinics alprazolam alprazolam No alprazolam [place] 0.5 mg 0.5 mg 0.5 mg Communi tablet TAKE tablet TAKE tablet ty ONE (1) ONE (1) TAKE ONE Hospi ta TABLET(S) TABLET(S) (1) l BY MOUTH BY MOUTH TABLET(S) Cl inics ONCE A DAY ONCE A DAY BY MOUTH NEEDED. NEEDED. ONCE A DAY NEEDED. losartan 50 losartan 50 No 1 Q1D losartan [place] mg-hydrochl mg-hydrochl 50 C om[facility]i orothiazide orothiazide mg-hydroch ty 12.5 mg 12.5 mg lorothiazi Hos fel[facility] tablet Take tablet Take de 12.5 mg l 1 tablet 1 tablet tablet Clini cs every day every day Take 1 by oral by oral tablet route. route. every day by oral route. metoprolol metoprolol No metoprolol [place] succinate succinate succinate Communi ER 100 mg ER 100 mg ER 100 mg ty tablet,exte tablet,exte tablet,ext Hospita nded nded ended l release 24 release 24 release 24 Clinics hr TAKE 2 hr TAKE 2 hr TAKE 2 TABLETS BY TABLETS BY TABLETS BY MOUTH EVERY MOUTH EVERY MOUTH DAY DAY EVERY DAY ondansetron ondansetron No ondansetro [place] HCl 8 mg HCl 8 mg n HCl 8 mg C om[facility]i tablet TAKE tablet TAKE tablet ty 1 TABLET BY 1 TABLET BY TAKE 1 Hospita MOUTH EVERY MOUTH EVERY TABLET BY l 8 HOURS 8 HOURS MOUTH Cl inics NEEDED NEEDED EVERY 8 HOURS NEEDED trazodone trazodone No 1 Q1D trazodone [place] 50 mg 50 mg 50 mg Communi tablet Take tablet Take tablet ty 1 tablet 1 tablet Take 1 Hospi ta every day every day tablet l by oral by oral every day Clin ics route at route at by oral bedtime. bedtime. route at bedtime. Volnea (28) Volnea (28) No Volnea [place] 0.15 0.15 (28) 0.15 Communi mg-0.02 mg mg-0.02 mg mg-0.02 mg ty (21)/0.01 (21)/0.01 (21)/0.01 Hospita mg (5) mg (5) mg (5) l tablet tablet tablet Clinics almotriptan almotriptan No almotripta [place] malate 12.5 malate 12.5 n malate Communi mg tablet mg tablet 12.5 mg ty Take one Take one tablet Hospi ta tablet at tablet at Take one l onset of onset of tablet at Cl inics migraine, migraine, onset of may repeat may repeat migraine, dose x1 dose x1 may repeat after 2h after 2h dose x1 after 2h alprazolam alprazolam No alprazolam [place] 0.5 mg 0.5 mg 0.5 mg Communi tablet TAKE tablet TAKE tablet ty ONE (1) ONE (1) TAKE ONE Hospi ta TABLET(S) TABLET(S) (1) l BY MOUTH BY MOUTH TABLET(S) Cl inics ONCE A DAY ONCE A DAY BY MOUTH NEEDED. NEEDED. ONCE A DAY NEEDED. azithromyci azithromyci No azithromyc [place] n 250 mg n 250 mg in 250 mg Co [facility]i tablet tablet tablet ty [facility] losartan 50 losartan 50 No losartan [place] mg-hydrochl mg-hydrochl 50 C ommuni orothiazide orothiazide mg-hydroch ty 12.5 mg 12.5 mg lorothiazi [facility] tablet Take tablet Take de 12.5 mg l 1 tablet 1 tablet tablet Clini cs every day every day Take 1 by oral by oral tablet route. route. every day by oral route. methylpredn methylpredn No methylpred [place] isolone 4 isolone 4 nisolone 4 Communi mg tablets mg tablets mg tablets ty in a dose in a dose [facility] pack [facility] metoprolol metoprolol No metoprolol [place] succinate succinate succinate Communi ER 100 mg ER 100 mg ER 100 mg ty tablet,exte tablet,exte tablet,ext Hospita nded nded ended l release 24 release 24 release 24 Clinics hr TAKE 2 hr TAKE 2 hr TAKE 2 TABLETS BY TABLETS BY TABLETS BY MOUTH EVERY MOUTH EVERY MOUTH DAY DAY EVERY DAY ondansetron ondansetron No ondansetro [place] HCl 8 mg HCl 8 mg n HCl 8 mg C [facility] tablet TAKE tablet TAKE tablet ty 1 TABLET BY 1 TABLET BY TAKE 1 Hospita MOUTH EVERY MOUTH EVERY TABLET BY l 8 HOURS 8 HOURS MOUTH Cl inics NEEDED NEEDED EVERY 8 HOURS NEEDED trazodone trazodone No trazodone [place] 50 mg 50 mg 50 mg Communi tablet TAKE tablet TAKE tablet ty 1 TABLET BY 1 [facility]T BY l EVERYDAY AT EVERYDAY AT MOUTH Clinics BEDTIME BEDTIME EVERYDAY AT BEDTIME Ubrelvy 100 Ubrelvy 100 No Ubrelvy [place] mg tablet mg tablet 100 mg Com cali tablet ty Hospita l Clinics Volnea (28) Volnea (28) No Volnea [place] 0.15 0.15 (28) 0.15 Communi mg-0.02 mg mg-0.02 mg mg-0.02 mg ty (21)/0.01 (21)/0.01 (21)/0.01 Hospita mg (5) mg (5) mg (5) l tablet tablet tablet Clinics alprazolam alprazolam No alprazolam [place] 0.5 mg 0.5 mg 0.5 mg Communi tablet TAKE tablet TAKE tablet ty ONE TABLET ONE TABLET TAKE ONE Hospita BY MOUTH BY MOUTH TABLET BY l ONCE A DAY ONCE A DAY MOUTH ONCE Clinics NEEDED NEEDED A DAY NEEDED losartan 50 losartan 50 No losartan [place] mg-hydrochl mg-hydrochl 50 C [facility] orothiazide orothiazide mg-hydroch ty 12.5 mg 12.5 mg lorothiazi [facility] tablet Take tablet Take de 12.5 mg l 1 tablet 1 tablet tablet Clini cs every day every day Take 1 by oral by oral tablet route. route. every day by oral route. metoprolol metoprolol No metoprolol [place] succinate succinate succinate Communi ER 100 mg ER 100 mg ER 100 mg ty tablet,exte tablet,exte tablet,ext Hospita nded nded ended l release 24 release 24 release 24 Clinics hr TAKE 2 hr TAKE 2 hr TAKE 2 TABLETS BY TABLETS BY TABLETS BY MOUTH EVERY MOUTH EVERY MOUTH DAY DAY EVERY DAY Ubrelvy 100 Ubrelvy 100 No Ubrelvy [place] mg tablet mg tablet 100 mg Com cali tablet ty Hospita l Clinics Volnea (28) Volnea (28) No Volnea [place] 0.15 0.15 (28) 0.15 Communi mg-0.02 mg mg-0.02 mg mg-0.02 mg ty (21)/0.01 (21)/0.01 (21)/0.01 Hospita mg (5) mg (5) mg (5) l tablet tablet tablet Clinics alprazolam alprazolam No alprazolam [place] 0.5 mg 0.5 mg 0.5 mg Communi tablet TAKE tablet TAKE tablet ty ONE TABLET ONE TABLET TAKE ONE Hospita BY MOUTH BY MOUTH TABLET BY l ONCE A DAY ONCE A DAY MOUTH ONCE Clinics NEEDED NEEDED A DAY NEEDED losartan 50 losartan 50 No losartan [place] mg-hydrochl mg-hydrochl 50 [facility] orothiazide orothiazide mg-hydroch ty 12.5 mg 12.5 mg lorothiazi [facility] tablet Take tablet Take de 12.5 mg l 1 tablet 1 tablet tablet Clini cs every day every day Take 1 by oral by oral tablet route. route. every day by oral route. metoprolol metoprolol No metoprolol [place] succinate succinate succinate Communi ER 100 mg ER 100 mg ER 100 mg ty tablet,exte tablet,exte tablet,ext Hospita nded nded ended l release 24 release 24 release 24 Clinics hr TAKE 2 hr TAKE 2 hr TAKE 2 TABLETS BY TABLETS BY TABLETS BY MOUTH EVERY MOUTH EVERY MOUTH DAY DAY EVERY DAY GLAZE CARRIER Thyroid GLAZE CARRIER Thyroid No 1 Q1D GLAZE CARRIER Thyroid [place] 60 mg 60 mg 60 mg Communi tablet Take tablet Take tablet ty 1 tablet 1 tablet Take 1 Hospi ta every day every day tablet l by oral by oral every day Clin ics route for route for by oral 90 days. 90 days. route for 90 days. ondansetron ondansetron No ondansetro [place] HCl 8 mg HCl 8 mg n HCl 8 mg [facility] tablet TAKE tablet TAKE tablet ty 1 TABLET BY 1 TABLET BY TAKE 1 Hospita MOUTH EVERY MOUTH EVERY TABLET BY l 8 HOURS 8 HOURS MOUTH Cl inics NEEDED NEEDED EVERY 8 HOURS NEEDED testosteron testosteron No 162.5mg testostero [place] e 100 mg e 100 mg ne 100 mg [facility] implant implant implant ty pellet Take pellet Take pellet Hospita 162.5 mg by 162.5 mg by Take 162.5 l implantatio implantatio mg by Clinics n route. n route. implantati on route. Ubrelvy 100 Ubrelvy 100 No Ubrelvy [place] mg tablet mg tablet 100 mg Com cali tablet ty Hospita l Clinics Volnea (28) Volnea (28) No Volnea [place] 0.15 0.15 (28) 0.15 Communi mg-0.02 mg mg-0.02 mg mg-0.02 mg ty (21)/0.01 (21)/0.01 (21)/0.01 Hospita mg (5) mg (5) mg (5) l tablet tablet tablet Clinics alprazolam alprazolam No alprazolam [place] 0.5 mg 0.5 mg 0.5 mg Communi tablet TAKE tablet TAKE tablet ty ONE TABLET ONE TABLET TAKE ONE Hospita BY MOUTH BY MOUTH TABLET BY l ONCE A DAY ONCE A DAY MOUTH ONCE Clinics NEEDED NEEDED A DAY NEEDED amoxicillin amoxicillin No amoxicilli [place] [phone] Communi mg-potassiu mg-potassiu mg-potassi ty m m um Hospita clavulanate clavulanate clavulanat l 125 mg 125 mg e 125 mg Clinics tablet Take tablet Take tablet 1 tablet 1 tablet Take 1 every 12 every 12 tablet hours by hours by every 12 oral route. oral route. hours by oral route. losartan 50 losartan 50 No losartan [place] mg-hydrochl mg-hydrochl 50 [facility] orothiazide orothiazide mg-hydroch ty 12.5 mg 12.5 mg [facility] tablet Take tablet Take de 12.5 mg l 1 tablet 1 tablet tablet Clini cs every day every day Take 1 by oral by oral tablet route. route. every day by oral route. metoprolol metoprolol No metoprolol [place] succinate succinate succinate [facility] ER 100 mg ER 100 mg ER 100 mg ty tablet,exte tablet,exte tablet,ext Hospita nded nded ended l release 24 release 24 release 24 Clinics hr TAKE 2 hr TAKE 2 hr TAKE 2 TABLETS BY TABLETS BY TABLETS BY MOUTH EVERY MOUTH EVERY MOUTH DAY DAY EVERY DAY GLAZE CARRIER Thyroid GLAZE CARRIER Thyroid No GLAZE CARRIER Thyroid [place] 60 mg 60 mg 60 mg Communi tablet TAKE tablet TAKE tablet ty 1 TABLET BY 1 TABLET BY TAKE 1 Hospita MOUTH EVERY MOUTH EVERY TABLET BY l DAY DAY MOUTH Clinics EVERY DAY ondansetron ondansetron No ondansetro [place] HCl 8 mg HCl 8 mg n HCl 8 mg [facility] tablet TAKE tablet TAKE tablet ty 1 TABLET BY 1 TABLET BY TAKE 1 Hospita MOUTH EVERY MOUTH EVERY TABLET BY l 8 HOURS 8 HOURS MOUTH Cl inics NEEDED NEEDED EVERY 8 HOURS NEEDED testosteron testosteron No 162.5mg testostero [place] e 100 mg e 100 mg ne 100 mg [facility] implant implant implant ty pellet Take pellet Take pellet Hospita 162.5 mg by 162.5 mg by Take 162.5 l implantatio implantatio mg by Clinics n route. n route. implantati on route. Ubrelvy 100 Ubrelvy 100 No Ubrelvy [place] mg tablet mg tablet 100 mg Com cali tablet ty Hospita l Clinics Volnea (28) Volnea (28) No Volnea [place] 0.15 0.15 (28) 0.15 Communi mg-0.02 mg mg-0.02 mg mg-0.02 mg ty (21)/0.01 (21)/0.01 (21)/0.01 Hospita mg (5) mg (5) mg (5) l tablet tablet tablet Clinics alprazolam alprazolam No alprazolam [place] 0.5 mg 0.5 mg 0.5 mg [facility] tablet TAKE tablet TAKE tablet ty ONE TABLET ONE TABLET TAKE ONE Hospita BY MOUTH BY MOUTH TABLET BY l ONCE A DAY ONCE A DAY MOUTH ONCE Clinics NEEDED. NEEDED. A DAY NEEDED. cyclobenzap cyclobenzap No cyclobenza [place] rine 10 mg rine 10 mg [place] 10 [facility] tablet TAKE tablet TAKE mg tablet ty ONE (1) ONE (1) TAKE ONE Hospi ta TABLET(S) TABLET(S) (1) l BY MOUTH AT BY MOUTH AT TABLET(S) Clinics BEDTIME. BEDTIME. BY MOUTH AT BEDTIME. losartan 50 losartan 50 No losartan [place] mg-hydrochl mg-hydrochl 50 [facility] orothiazide orothiazide mg-hydroch ty 12.5 mg 12.5 mg [facility] tablet Take tablet Take de 12.5 mg l 1 tablet 1 tablet tablet Clini cs every day every day Take 1 by oral by oral tablet route. route. every day by oral route. metoprolol metoprolol No metoprolol [place] succinate succinate succinate [facility] ER 100 mg ER 100 mg ER 100 mg ty tablet,exte tablet,exte tablet,ext Hospita nded nded ended l release 24 release 24 release 24 Clinics hr TAKE 2 hr TAKE 2 hr TAKE 2 TABLETS BY TABLETS BY TABLETS BY MOUTH EVERY MOUTH EVERY MOUTH DAY DAY EVERY DAY GLAZE CARRIER Thyroid GLAZE CARRIER Thyroid No GLAZE CARRIER Thyroid [place] 60 mg 60 mg 60 mg [facility] tablet TAKE tablet TAKE tablet ty 1 TABLET BY 1 TABLET BY TAKE 1 Hospita MOUTH EVERY MOUTH EVERY TABLET BY l DAY DAY MOUTH Clinics EVERY DAY ondansetron ondansetron No ondansetro [place] HCl 8 mg HCl 8 mg n HCl 8 mg [facility] tablet TAKE tablet TAKE tablet ty 1 TABLET BY 1 TABLET BY TAKE 1 Hospita MOUTH EVERY MOUTH EVERY TABLET BY l 8 HOURS 8 HOURS MOUTH Cl inics NEEDED NEEDED EVERY 8 HOURS NEEDED testosteron testosteron No 162.5mg testostero [place] e 100 mg e 100 mg ne 100 mg [facility] implant implant implant ty pellet Take pellet Take pellet Hospita 162.5 mg by 162.5 mg by Take 162.5 l implantatio implantatio mg by Clinics n route. n route. implantati on route. Volnea (28) Volnea (28) No Volnea [place] 0.15 0.15 (28) 0.15 [facility]i mg-0.02 mg mg-0.02 mg mg-0.02 mg ty (21)/0.01 (21)/0.01 (21)/0.01 Hospita mg (5) mg (5) mg (5) l tablet tablet tablet Clinics alprazolam alprazolam No alprazolam [place] 0.5 mg 0.5 mg 0.5 mg [facility] tablet TAKE tablet TAKE tablet ty ONE TABLET ONE TABLET TAKE ONE Hospita BY MOUTH BY MOUTH TABLET BY l ONCE A DAY ONCE A DAY MOUTH ONCE Clinics NEEDED NEEDED A DAY NEEDED amoxicillin amoxicillin No amoxicilli [place] 500 mg 500 mg n 500 mg [facility] capsule capsule capsule ty Hospita l Clinics cyclobenzap cyclobenzap No cyclobenza [place] rine 10 mg rine 10 mg rosa 10 [facility]i tablet TAKE tablet TAKE mg tablet ty 1 TABLET BY 1 TABLET BY TAKE 1 Hospita MOUTH AT MOUTH AT TABLET BY l BEDTIME BEDTIME MOUTH AT Clini cs BEDTIME losartan 50 losartan 50 No losartan [place] mg-hydrochl mg-hydrochl 50 [facility] orothiazide orothiazide mg-hydroch ty 12.5 mg 12.5 mg [facility] tablet Take tablet Take de 12.5 mg l 1 tablet 1 tablet tablet Clini cs every day every day Take 1 by oral by oral tablet route. route. every day by oral route. metoprolol metoprolol No metoprolol [place] succinate succinate succinate [facility] ER 100 mg ER 100 mg ER 100 mg ty tablet,exte tablet,exte tablet,ext Hospita nded nded ended l release 24 release 24 release 24 Clinics hr TAKE 2 hr TAKE 2 hr TAKE 2 TABLETS BY TABLETS BY TABLETS BY MOUTH EVERY MOUTH EVERY MOUTH DAY DAY EVERY DAY ondansetron ondansetron No ondansetro [place] HCl 8 mg HCl 8 mg n HCl 8 mg [facility] tablet TAKE tablet TAKE tablet ty 1 TABLET BY 1 TABLET BY TAKE 1 Hospita MOUTH EVERY MOUTH EVERY TABLET BY l 8 HOURS 8 HOURS MOUTH Cl inics NEEDED NEEDED EVERY 8 HOURS NEEDED testosteron testosteron No 162.5mg testostero [place] e 100 mg e 100 mg ne 100 mg [facility] implant implant implant ty pellet Take pellet Take pellet Hospita 162.5 mg by 162.5 mg by Take 162.5 l implantatio implantatio mg by Clinics n route. n route. implantati on route. [place] (28) Volnea (28) No Volnea [place] 0.15 0.15 (28) 0.15 Communi mg-0.02 mg mg-0.02 mg mg-0.02 mg ty (21)/0.01 (21)/0.01 (21)/0.01 Hospita mg (5) mg (5) mg (5) l tablet tablet tablet Clinics alprazolam alprazolam No alprazolam [place] 0.5 mg 0.5 mg 0.5 mg [facility] tablet TAKE tablet TAKE tablet ty ONE TABLET ONE TABLET TAKE ONE Hospita BY MOUTH BY MOUTH TABLET BY l ONCE A DAY ONCE A DAY MOUTH ONCE Clinics NEEDED NEEDED A DAY NEEDED amoxicillin amoxicillin No amoxicilli [place] 500 mg 500 mg n 500 mg Commun[facility] capsule capsule capsule ty Hospita l Clinics cyclobenzap cyclobenzap No cyclobenza [place] rine 10 mg rine 10 mg rosa 10 [facility]i tablet TAKE tablet TAKE mg tablet ty 1 TABLET BY 1 TABLET BY TAKE 1 Hospita MOUTH AT MOUTH AT TABLET BY l BEDTIME BEDTIME MOUTH AT Clini cs BEDTIME losartan 50 losartan 50 No losartan [place] mg-hydrochl mg-hydrochl 50 [facility] orothiazide orothiazide mg-hydroch ty 12.5 mg 12.5 mg [facility] tablet Take tablet Take de 12.5 mg l 1 tablet 1 tablet tablet [facility]ini cs every day every day Take 1 by oral by oral tablet route. route. every day by oral route. metoprolol metoprolol No metoprolol [place] succinate succinate succinate [facility] ER 100 mg ER 100 mg ER 100 mg ty tablet,exte tablet,exte tablet,ext [facility]ospita nded nded ended l release 24 release 24 release 24 Clinics hr TAKE 2 hr TAKE 2 hr TAKE 2 TABLETS BY TABLETS BY TABLETS BY MOUTH EVERY MOUTH EVERY MOUTH DAY DAY EVERY DAY ondansetron ondansetron No ondansetro [place] HCl 8 mg HCl 8 mg n HCl 8 mg [facility] tablet TAKE tablet TAKE tablet ty 1 TABLET BY 1 TABLET BY TAKE 1 Hospita MOUTH EVERY MOUTH EVERY TABLET BY l 8 HOURS 8 HOURS MOUTH Cl inics NEEDED NEEDED EVERY 8 HOURS NEEDED testosteron testosteron No 162.5mg testostero [place] e 100 mg e 100 mg ne 100 mg [facility] implant implant implant ty pellet Take pellet Take pellet Hosp[facility] 162.5 mg by 162.5 mg by Take 162.5 l implantatio implantatio mg by Clinics n route. n route. implantati on route. [place] (28) Volnea (28) No Volnea [place] 0.15 0.15 (28) 0.15 Communi mg-0.02 mg mg-0.02 mg mg-0.02 mg ty (21)/0.01 (21)/0.01 (21)/0.01 Hospita mg (5) mg (5) mg (5) l tablet tablet tablet Clinics alprazolam alprazolam No alprazolam [place] 0.5 mg 0.5 mg 0.5 mg [facility] tablet TAKE tablet TAKE tablet ty ONE TABLET ONE TABLET TAKE ONE Hospita BY MOUTH BY MOUTH TABLET BY l ONCE A DAY ONCE A DAY MOUTH ONCE Clinics NEEDED NEEDED A DAY NEEDED cyclobenzap cyclobenzap No cyclobenza [place] rine 10 mg rine 10 mg rosa 10 Communi tablet TAKE tablet TAKE mg tablet ty 1 TABLET BY 1 TABLET BY TAKE 1 Hospita MOUTH AT MOUTH AT TABLET BY l BEDTIME BEDTIME MOUTH AT Clini cs BEDTIME losartan 50 losartan 50 No losartan [place] mg-hydrochl mg-hydrochl 50 [facility] orothiazide orothiazide mg-hydroch ty 12.5 mg 12.5 mg [facility] tablet TAKE tablet TAKE de 12.5 mg l 1 TABLET 1 TABLET tablet Clini cs DAILY DAILY TAKE 1 TABLET DAILY metoprolol metoprolol No metoprolol [place] succinate succinate succinate [facility] ER 100 mg ER 100 mg ER 100 mg ty tablet,exte tablet,exte tablet,ext [facility]ospita nded nded ended l release 24 release 24 release 24 Clinics hr TAKE 2 hr TAKE 2 hr TAKE 2 TABLETS BY TABLETS BY TABLETS BY MOUTH EVERY MOUTH EVERY MOUTH DAY DAY EVERY DAY ondansetron ondansetron No ondansetro [place] HCl 8 mg HCl 8 mg n HCl 8 mg [facility] tablet TAKE tablet TAKE tablet ty 1 TABLET BY 1 TABLET BY TAKE 1 Hospita MOUTH EVERY MOUTH EVERY TABLET BY l 8 HOURS 8 HOURS MOUTH Cl inics NEEDED NEEDED EVERY 8 HOURS NEEDED pilocarpine pilocarpine No 1 TID pilocarpin [place] 5 mg tablet 5 mg tablet e 5 mg Communi Take 1 Take 1 tablet ty tablet 3 tablet 3 Take 1 Hospi ta times a day times a day tablet 3 l by oral by oral times a Clinic s route. route. day by oral route. testosteron testosteron No 162.5mg testostero [place] e 100 mg e 100 mg ne 100 mg [facility] implant implant implant ty pellet Take pellet Take pellet Hospita 162.5 mg by 162.5 mg by Take 162.5 l implantatio implantatio mg by Clinics n route. n route. implantati on route. [place]nea (28) Volnea (28) No Volnea [place] 0.15 0.15 (28) 0.15 Communi mg-0.02 mg mg-0.02 mg mg-0.02 mg ty (21)/0.01 (21)/0.01 (21)/0.01 Hospita mg (5) mg (5) mg (5) l tablet tablet tablet Clinics alprazolam alprazolam No alprazolam [place] 0.5 mg 0.5 mg 0.5 mg [facility] tablet TAKE tablet TAKE tablet ty ONE (1) ONE (1) TAKE ONE Hospi ta TABLET(S) TABLET(S) (1) l BY MOUTH BY MOUTH TABLET(S) Cl inics ONCE A DAY ONCE A DAY BY MOUTH NEEDED. NEEDED. ONCE A DAY NEEDED. budesonide- budesonide- No budesonide [place] formoterol formoterol -formotero Communi HFA 80 HFA 80 l HFA 80 ty mcg-4.5 mcg-4.5 mcg-4.5 Hospit a mcg/actuati mcg/actuati mcg/actuat l on aerosol on aerosol ion Cli nics inhaler inhaler aerosol INHALE 2 INHALE 2 inhaler PUFFS TWICE PUFFS TWICE INHALE 2 A DAY BY A DAY BY PUFFS INHALATION INHALATION TWICE A ROUTE FOR ROUTE FOR DAY BY 30 DAYS. 30 DAYS. INHALATION ROUTE FOR 30 DAYS. cyclobenzap cyclobenzap No cyclobenza [place] rine 10 mg rine 10 mg rosa 10 [facility] tablet TAKE tablet TAKE mg tablet ty ONE (1) ONE (1) TAKE ONE Hospi ta TABLET(S) TABLET(S) (1) l BY MOUTH AT BY MOUTH AT TABLET(S) Clinics BEDTIME. BEDTIME. BY MOUTH AT BEDTIME. hydrocortis hydrocortis No hydrocorti [place] one 2.5 % one 2.5 % sone 2.5 % Communi topical topical topical ty cream APPLY cream APPLY cream Hospita A THIN A THIN APPLY A l LAYER TO LAYER TO THIN LAYER C linics AFFECTED AFFECTED TO AREA(S) AREA(S) AFFECTED TWICE TWICE AREA(S) DAILY. DO DAILY. DO TWICE NOT USE ON NOT USE ON DAILY. DO FACE. FACE. NOT USE ON FACE. magnesium magnesium No magnesium [place] phosphate phosphate phosphate [facility] 400mg daily 400mg daily 400[facility] metop[facility] No 2 Q1D metoprolol [place] succinate succinate succinate [facility] ER 100 mg ER 100 mg ER 100 mg ty tablet,exte tablet,exte tablet,ext [facility]ospita nded nded ended l release 24 release 24 release 24 Clinics hr Take 2 hr Take 2 hr Take 2 tablets tablets tablets every day every day every day by oral by oral by oral route. route. route. ondansetron ondansetron No ondansetro [place] 8 mg 8 mg n 8 mg Communi disintegrat disintegrat disintegra ty ing tablet ing tablet ting [facility] DISSOLVE DISSOLVE tablet l ONE (1) ONE (1) DISSOLVE Clini cs TABLET(S) TABLET(S) ONE (1) BY MOUTH BY MOUTH TABLET(S) TWICE A DAY TWICE A DAY BY MOUTH NEEDED. NEEDED. TWICE A DAY NEEDED. ondansetron ondansetron No ondansetro [place] HCl 8 mg HCl 8 mg n HCl 8 mg [facility] tablet Take tablet Take tablet ty 1 tablet 1 tablet Take 1 Hospi ta every 8 every 8 tablet l hours by hours by every 8 Clin ics oral route oral route hours by as needed. as needed. oral route as needed. topiramate topiramate No topiramate [place] 50 mg 50 mg 50 mg [facility] tablet TAKE tablet TAKE tablet ty ONE (1) ONE (1) TAKE ONE Hospi ta TABLET(S) TABLET(S) (1) l BY MOUTH BY MOUTH TABLET(S) Cl inics TWICE A DAY TWICE A DAY BY MOUTH WITH MEALS. WITH MEALS. TWICE A DAY WITH MEALS. Volnea (28) Volnea (28) No Volnea [place] 0.15 0.15 (28) 0.15 Communi mg-0.02 mg mg-0.02 mg mg-0.02 mg ty (21)/0.01 (21)/0.01 (21)/0.01 Hospita mg (5) mg (5) mg (5) l tablet tablet tablet Clinics alprazolam alprazolam No alprazolam [place] 0.5 mg 0.5 mg 0.5 mg [facility] tablet TAKE tablet TAKE tablet ty ONE (1) ONE (1) TAKE ONE Hospi ta TABLET(S) TABLET(S) (1) l BY MOUTH BY MOUTH TABLET(S) Cl inics ONCE A DAY ONCE A DAY BY MOUTH NEEDED. NEEDED. ONCE A DAY NEEDED. benzonatate benzonatate No benzonatat [place] 100 mg 100 mg e 100 mg [facility] capsule capsule capsule ty TAKE ONE TAKE ONE TAKE ONE [facility] (1) (1) (1) l CAPSULE(S) CAPSULE(S) CAPSULE(S) Clinics BY MOUTH BY MOUTH BY MOUTH THREE TIMES THREE TIMES THREE A DAY. A DAY. TIMES A DAY. budesonide- budesonide- No budesonide [place] formoterol formoterol -formotero Commun[facility] HFA 80 HFA 80 l HFA 80 ty mcg-4.5 mcg-4.5 mcg-4.5 Hospit a mcg/actuati mcg/actuati mcg/actuat l on aerosol on aerosol ion Cli nics inhaler inhaler aerosol INHALE 2 INHALE 2 inhaler PUFFS TWICE PUFFS TWICE INHALE 2 A DAY BY A DAY BY PUFFS INHALATION INHALATION TWICE A ROUTE FOR ROUTE FOR DAY BY 30 DAYS. 30 DAYS. INHALATION ROUTE FOR 30 DAYS. cyclobenzap cyclobenzap No cyclobenza [place] rine 10 mg rine 10 mg rosa 10 [facility] tablet TAKE tablet TAKE mg tablet ty ONE (1) ONE (1) TAKE ONE Hospi ta TABLET(S) TABLET(S) (1) l BY MOUTH AT BY MOUTH AT TABLET(S) Clinics BEDTIME. BEDTIME. BY MOUTH AT BEDTIME. hydrocortis hydrocortis No hydrocorti [place] one 2.5 % one 2.5 % sone 2.5 % Communi topical topical topical ty cream APPLY cream APPLY cream Hospita A THIN A THIN APPLY A l LAYER TO LAYER TO THIN LAYER C linics AFFECTED AFFECTED TO AREA(S) AREA(S) AFFECTED TWICE TWICE AREA(S) DAILY. DO DAILY. DO TWICE NOT USE ON NOT USE ON DAILY. DO FACE. FACE. NOT USE ON FACE. magnesium magnesium No magnesium [place] phosphate phosphate phosphate [facility] 400mg daily 400mg daily 400mg ty daily Hospita l Clinics Medrol Medrol No Medrol [place] ([place]) 4 mg ([place]) 4 mg ([place]) 4 mg [facility] tablets in tablets in tablets in ty a dose pack a dose pack a dose Hospita as directed as directed pack as l on package on package directed Clinics on package metoprolol metoprolol No metoprolol [place] succinate succinate succinate Commun[facility] ER 100 mg ER 100 mg ER 100 mg ty tablet,exte tablet,exte tablet,ext [facility]ospita nded nded ended l release 24 release 24 release 24 Clinics hr TAKE 2 hr TAKE 2 hr TAKE 2 TABLETS BY TABLETS BY TABLETS BY MOUTH EVERY MOUTH EVERY MOUTH DAY DAY EVERY DAY ondansetron ondansetron No ondansetro [place] 8 mg 8 mg n 8 mg Communi disintegrat disintegrat disintegra ty ing tablet ing tablet ting [facility] DISSOLVE DISSOLVE tablet l ONE (1) ONE (1) DISSOLVE Clini cs TABLET(S) TABLET(S) ONE (1) BY MOUTH BY MOUTH TABLET(S) TWICE A DAY TWICE A DAY BY MOUTH NEEDED. NEEDED. TWICE A DAY NEEDED. alprazolam alprazolam No alprazolam [facility] 0.5 mg 0.5 mg 0.5 mg [facility] tablet TAKE tablet TAKE tablet ONE (1) ONE (1) TAKE ONE TABLET(S) TABLET(S) (1) BY MOUTH BY MOUTH TABLET(S) ONCE A DAY ONCE A DAY BY MOUTH NEEDED. NEEDED. ONCE A DAY NEEDED. budesonide- budesonide- No budesonide [facility] formoterol formoterol -formotero [facility] HFA 80 HFA 80 l HFA 80 mcg-4.5 mcg-4.5 mcg-4.5 mcg/actuati mcg/actuati mcg/actuat on aerosol on aerosol ion inhaler inhaler aerosol inhaler losartan 50 losartan 50 No losartan [facility] mg tablet mg tablet 50 mg [facility] tablet metoprolol metoprolol No metoprolol [facility] succinate succinate succinate [facility] ER 100 mg ER 100 mg ER 100 mg tablet,exte tablet,exte tablet,ext nded nded ended release 24 release 24 release 24 hr TAKE ONE hr TAKE ONE hr TAKE (1) (1) ONE (1) TABLET(S) TABLET(S) TABLET(S) BY MOUTH BY MOUTH BY MOUTH ONCE A DAY. ONCE A DAY. ONCE A DAY. [place] (28) Volnea (28) No Volnea [facility] 0.15 0.15 (28) 0.15 [facility] mg-0.02 mg mg-0.02 mg mg-0.02 mg (21)/0.01 (21)/0.01 (21)/0.01 mg (5) mg (5) mg (5) tablet TAKE tablet TAKE tablet 1 TABLET 1 TABLET TAKE 1 DAILY DAILY TABLET DAILY alprazolam alprazolam No alprazolam [facility] 0.5 mg 0.5 mg 0.5 mg [facility] tablet TAKE tablet TAKE tablet ONE TABLET ONE TABLET TAKE ONE BY MOUTH BY MOUTH TABLET BY ONCE A DAY ONCE A DAY MOUTH ONCE NEEDED NEEDED A DAY NEEDED losartan 50 losartan 50 No losartan [facility] mg tablet mg tablet 50 mg [facility] tablet metoprolol metoprolol No metoprolol [facility] succinate succinate succinate [facility] ER 100 mg ER 100 mg ER 100 mg tablet,exte tablet,exte tablet,ext nded nded ended release 24 release 24 release 24 hr TAKE 2 hr TAKE 2 hr TAKE 2 TABLETS BY TABLETS BY TABLETS BY MOUTH EVERY MOUTH EVERY MOUTH DAY DAY EVERY DAY topiramate topiramate No topiramate [facility] XR 50 mg XR 50 mg XR 50 mg Med ical capsule capsule capsule sprinkle,ex sprinkle,ex sprinkle,e tended tended xtended release 24 release 24 release 24 hr TAKE ONE hr TAKE ONE hr TAKE (1) (1) ONE (1) CAPSULE(S) CAPSULE(S) CAPSULE(S) BY MOUTH BY MOUTH BY MOUTH TWICE A DAY TWICE A DAY TWICE A WITH MEALS. WITH MEALS. DAY WITH MEALS. [place] (28) Volnea (28) No Volnea [facility] 0.15 0.15 (28) 0.15 [facility] mg-0.02 mg mg-0.02 mg mg-0.02 mg (21)/0.01 (21)/0.01 (21)/0.01 mg (5) mg (5) mg (5) tablet TAKE tablet TAKE tablet 1 TABLET 1 TABLET TAKE 1 DAILY DAILY TABLET DAILY Immunizations Ordered Immunization Filled Immunization Date Status Commen ts Source Name Name COVID- COVID-2021-11-06 Completed [facility] (SARS-COV-2) (SARS-COV-2) 00:00:00 vaccine, unspecified vaccine, unspecified COVID-19 COVID-19 2021-11-06 Completed [facility] (SARS-COV-2) (SARS-COV-2) 00:00:00 vaccine, unspecified vaccine, unspecified influenza, influenza, 2021-08-29 Completed [facility] unspecified unspecified 00:00:00 formulation formulation COVID-19 COVID-19 2021-08-29 Completed [facility] (SARS-COV-2) (SARS-COV-2) 00:00:00 vaccine, unspecified vaccine, unspecified influenza, influenza, 2021-08-29 Completed [facility] unspecified unspecified 00:00:00 formulation formulation COVID-19 COVID-19 2021-08-29 Completed [facility] (SARS-COV-2) (SARS-COV-2) 00:00:00 vaccine, unspecified vaccine, unspecified Influenza, Influenza, 2021-08-09 Completed [place] [facility] injectable, MDCK, injectable, MDCK, 00:00:00 Hospital Clinics preservative free, preservative free, quadrivalent quadrivalent Influenza, Influenza, 2021-08-09 Completed [place] [facility] injectable, MDCK, injectable, MDCK, 00:00:00 Hospital Clinics preservative free, preservative free, quadrivalent quadrivalent Influenza, Influenza, 2021-08-09 Completed [place] [facility] ty injectable, MDCK, injectable, MDCK, 00:00:00 Hospital Clinics preservative free, preservative free, quadrivalent quadrivalent Influenza, Influenza, 2021-08-09 Completed [place] [facility] ty injectable, MDCK, injectable, MDCK, 00:00:00 Hospital Clinics preservative free, preservative free, quadrivalent quadrivalent Influenza, Influenza, 2021-08-09 Completed [place] [facility] ty injectable, MDCK, injectable, MDCK, 00:00:00 Hospital Clinics preservative free, preservative free, quadrivalent quadrivalent Influenza, Influenza, 2021-08-09 Completed [place] [facility] ty injectable, MDCK, injectable, MDCK, 00:00:00 Hospital Clinics preservative free, preservative free, quadrivalent quadrivalent Influenza, Influenza, 2021-08-09 Completed [place] [facility] ty injectable, MDCK, injectable, MDCK, 00:00:00 Hospital Clinics preservative free, preservative free, quadrivalent quadrivalent Influenza, Influenza, 2021-08-09 Completed [place] [facility] ty injectable, MDCK, injectable, MDCK, 00:00:00 Hospital Clinics preservative free, preservative free, quadrivalent quadrivalent Influenza, Influenza, 2021-08-09 Completed [place] [facility] ty injectable, MDCK, injectable, MDCK, 00:00:00 Hospital Clinics preservative free, preservative free, quadrivalent quadrivalent COVID-19 COVID-19 2020-11-28 Completed [facility] (SARS-COV-2) (SARS-COV-2) 00:00:00 vaccine, unspecified vaccine, unspecified COVID-19 COVID-19 2020-11-28 Completed [facility] (SARS-COV-2) (SARS-COV-2) 00:00:00 vaccine, unspecified vaccine, unspecified SARS-COV-2 SARS-COV-2 2020-11-15 Completed [place] [facility] (COVID-19) vaccine, (COVID-19) vaccine, 00:00:00 [facility] UNSPECIFIED UNSPECIFIED COVID-19 COVID-19 2020-11-15 Completed [place] [facility] (SARS-COV-2) (SARS-COV-2) 00:00:00 [facility] vaccine, unspecified vaccine, unspecified COVID-19 COVID-19 2020-11-15 Completed [place] [facility] (SARS-COV-2) (SARS-COV-2) 00:00:00 [facility] vaccine, unspecified vaccine, unspecified COVID-19 COVID-19 2020-11-15 Completed [place] [facility] (SARS-COV-2) (SARS-COV-2) 00:00:00 [facility] vaccine, unspecified vaccine, unspecified COVID-19 COVID-19 2020-11-15 Completed [place] [facility] (SARS-COV-2) (SARS-COV-2) 00:00:00 [facility] vaccine, unspecified vaccine, unspecified COVID-19 COVID-19 2020-11-15 Completed [place] [facility] (SARS-COV-2) (SARS-COV-2) 00:00:00 [facility] vaccine, unspecified vaccine, unspecified COVID-19 COVID-19 2020-11-15 Completed [place] [facility] (SARS-COV-2) (SARS-COV-2) 00:00:00 [facility] vaccine, unspecified vaccine, unspecified COVID-19 COVID-19 2020-11-15 Completed [place] [facility] (SARS-COV-2) (SARS-COV-2) 00:00:00 [facility] vaccine, unspecified vaccine, unspecified COVID-19 COVID-19 2020-11-15 Completed [place] [facility] (SARS-COV-2) (SARS-COV-2) 00:00:00 [facility] vaccine, unspecified vaccine, unspecified COVID-19 COVID-19 2020-11-15 Completed [place] [facility] (SARS-COV-2) (SARS-COV-2) 00:00:00 [facility] vaccine, unspecified vaccine, unspecified SARS-COV-2 SARS-COV-2 2020-11-13 Completed [place] [facility] (COVID-19) vaccine, (COVID-19) vaccine, 00:00:00 [facility] UNSPECIFIED UNSPECIFIED COVID-19 COVID-19 2020-11-13 Completed [place] [facility] (SARS-COV-2) (SARS-COV-2) 00:00:00 [facility] vaccine, unspecified vaccine, unspecified COVID-19 COVID-19 2020-11-13 Completed [place] [facility] (SARS-COV-2) (SARS-COV-2) 00:00:00 [facility] vaccine, unspecified vaccine, unspecified COVID-19 COVID-19 2020-11-13 Completed [place] [facility] (SARS-COV-2) (SARS-COV-2) 00:00:00 [facility] vaccine, unspecified vaccine, unspecified COVID-19 COVID-19 2020-11-13 Completed [place] [facility] (SARS-COV-2) (SARS-COV-2) 00:00:00 [facility] vaccine, unspecified vaccine, unspecified COVID-19 COVID-19 2020-11-13 Completed [place] [facility] (SARS-COV-2) (SARS-COV-2) 00:00:00 [facility] vaccine, unspecified vaccine, unspecified COVID-19 COVID-19 2020-11-13 Completed [place] [facility] (SARS-COV-2) (SARS-COV-2) 00:00:00 [facility] vaccine, unspecified vaccine, unspecified COVID-19 COVID-19 2020-11-13 Completed [place] [facility] (SARS-COV-2) (SARS-COV-2) 00:00:00 [facility] vaccine, unspecified vaccine, unspecified COVID-19 COVID-19 2020-11-13 Completed [place] [facility] (SARS-COV-2) (SARS-COV-2) 00:00:00 [facility] vaccine, unspecified vaccine, unspecified COVID-19 COVID-19 2020-11-13 Completed [place] [facility] (SARS-COV-2) (SARS-COV-2) 00:00:00 [facility] vaccine, unspecified vaccine, unspecified influenza, influenza, 2020-08-15 Completed [facility] unspecified unspecified 00:00:00 formulation formulation influenza, influenza, 2020-08-15 Completed [facility] unspecified unspecified 00:00:00 formulation formulation influenza, influenza, 2019-09-27 Completed [facility] injectable, injectable, 00:00:00 [facility] quadrivalent quadrivalent influenza, influenza, 2019-09-27 Completed [facility] injectable, injectable, 00:00:00 Hospital Cli nics quadrivalent quadrivalent influenza, influenza, 2019-09-27 Completed [facility] injectable, injectable, 00:00:00 Hospital Cli nics quadrivalent quadrivalent influenza, influenza, 2019-09-27 Completed [facility] [facility] injectable, injectable, 00:00:00 Hospital Cli nics quadrivalent quadrivalent influenza, influenza, 2019-09-27 Completed [place] [facility] injectable, injectable, 00:00:00 Hospital Cli nics quadrivalent quadrivalent influenza, influenza, 2019-09-27 Completed [facility] [facility] injectable, injectable, 00:00:00 Hospital Cli nics quadrivalent quadrivalent influenza, influenza, 2019-09-27 Completed [facility] injectable, injectable, 00:00:00 Hospital Cli nics quadrivalent quadrivalent influenza, influenza, 2019-09-27 Completed [facility] injectable, injectable, 00:00:00 Hospital Cli nics quadrivalent quadrivalent influenza, influenza, 2019-09-27 Completed [facility] injectable, injectable, 00:00:00 Hospital Cli nics quadrivalent quadrivalent influenza, influenza, 2019-09-27 Completed [place] [facility] injectable, injectable, 00:00:00 Hospital Cli nics quadrivalent quadrivalent influenza, influenza, 2019-09-27 Completed [place] [facility] injectable, injectable, 00:00:00 Hospital Cli nics quadrivalent quadrivalent influenza, influenza, 2019-09-27 Completed [place] [facility] injectable, injectable, 00:00:00 Hospital Cli nics quadrivalent quadrivalent influenza, influenza, 2019-09-27 Completed [place] [facility] injectable, injectable, 00:00:00 Hospital Cli nics quadrivalent quadrivalent influenza, influenza, 2019-09-27 Completed [place] [facility] injectable, injectable, 00:00:00 Hospital Cli nics quadrivalent quadrivalent influenza, influenza, 2017-07-16 Completed [facility] injectable, injectable, 00:00:00 quadrivalent quadrivalent influenza, influenza, 2017-07-16 Completed [facility] injectable, injectable, 00:00:00 quadrivalent quadrivalent Vital Signs Vital Name Observation Time Observation Value Comments Source BP Diastolic 2022-12-30 00:00:00 80 mm[Hg] [facility] s Height 2022-12-30 00:00:00 65 [in_i] [facility] s BMI (Body Mass 2022-12-30 00:00:00 39.3 kg/m2 [facility] BP Systolic 2022-12-30 00:00:00 118 mm[Hg] [facility] s Body Weight 2022-12-30 00:00:00 3776 [oz_av] [facility] s BP Diastolic 2022-12-10 00:00:00 80 mm[Hg] [facility] 2022-12-10 00:00:00 120 mm[Hg] [facility] Body Weight 2022-12-10 00:00:00 243 [lb_av] [facility] BP Diastolic 2022-11-19 00:00:00 80 mm[Hg] [facility] s Height 2022-11-19 00:00:00 65 [in_i] [facility] s BMI (Body Mass 2022-11-19 00:00:00 42.2 kg/m2 [facility] s BP Systolic 2022-11-19 00:00:00 118 mm[Hg] [facility] Body Weight 2022-11-19 00:00:00 4060.8 [oz_av] [facility] s BP Diastolic 2022-10-12 00:00:00 80 mm[Hg] [facility] s Height 2022-10-12 00:00:00 65 [in_i] [facility] s BMI (Body Mass 2022-10-12 00:00:00 41.4 kg/m2 [facility] s BP Systolic 2022-10-12 00:00:00 118 mm[Hg] [facility] Body Weight 2022-10-12 00:00:00 3984 [oz_av] [facility] s BP Diastolic 2022-07-08 00:00:00 77 mm[Hg] [facility] Height 2022-07-08 00:00:00 65 [in_i] [facility] BMI (Body Mass 2022-07-08 00:00:00 40.8 kg/m2 [facility] s BP Systolic 2022-07-08 00:00:00 121 mm[Hg] [facility] Body Weight 2022-07-08 00:00:00 3920 [oz_av] [facility] s BP Diastolic 2021-11-27 00:00:00 80 mm[Hg] [facility] s Height 2021-11-27 00:00:00 65 [in_i] [facility] s BMI (Body Mass 2021-11-27 00:00:00 41.5 kg/m2 [facility] s BP Systolic 2021-11-27 00:00:00 130 mm[Hg] [facility] Body Weight 2021-11-27 00:00:00 3987.2 [oz_av] [facility] s BP Diastolic 2021-10-30 00:00:00 84 mm[Hg] Tania ravi Height 2021-10-30 00:00:00 65 [in_i] [facility]ania ravi BMI (Body Mass 2021-10-30 00:00:00 41 kg/m2 [facility] Index) BP Systolic 2021-10-30 00:00:00 120 mm[Hg] Tania ravi Body Weight 2021-10-30 00:00:00 246.2 [lb_av] [facility] BP Diastolic 2021-08-07 00:00:00 88 mm[Hg] [facility] s Height 2021-08-07 00:00:00 65 [in_i] [facility] s BMI (Body Mass 2021-08-07 00:00:00 41.4 kg/m2 [facility] s BP Systolic 2021-08-07 00:00:00 130 mm[Hg] [facility] s Body Weight 2021-08-07 00:00:00 3980.8 [oz_av] [facility] s BP Diastolic 2021-04-29 00:00:00 80 mm[Hg] [facility] s Height 2021-04-29 00:00:00 65 [in_i] [facility] s BMI (Body Mass 2021-04-29 00:00:00 40.3 kg/m2 [facility] s BP Systolic 2021-04-29 00:00:00 122 mm[Hg] [facility] Body Weight 2021-04-29 00:00:00 3878.4 [oz_av] [facility] s BP Diastolic 2021-01-13 00:00:00 78 mm[Hg] [facility] s Height 2021-01-13 00:00:00 65 [in_i] [facility] s BMI (Body Mass 2021-01-13 00:00:00 37.9 kg/m2 [facility] s BP Systolic 2021-01-13 00:00:00 108 mm[Hg] [facility] Body Weight 2021-01-13 00:00:00 3648 [oz_av] [facility] s BP Diastolic 2020-12-26 00:00:00 90 mm[Hg] [facility] Height 2020-12-26 00:00:00 65 [in_i] [facility] s BMI (Body Mass 2020-12-26 00:00:00 37.6 kg/m2 [facility] Index) Hospital Clinic s BP Systolic 2020-12-26 00:00:00 130 mm[Hg] [facility] Body Weight 2020-12-26 00:00:00 3616 [oz_av] [facility] Procedures Procedure Date / Time Performing Source Performed Clinician US, neck, soft tissue 2022-11-19 [facility] 00:00:00 Hospital Clinics XR, hand, 3 or more view 2021-04-29 [facility] 00:00:00 Hospital Clinics electrocardiogram 2020-12-26 [facility] XR, chest, 2 view 2020-12-26 [facility] 00:[facility] Clinics Revision of 2019-09-15 [facility] Ventriculoperitoneal Shunt 00:00:00 Other 2018-09-15 [facility] 00:00:00 Other 2018-09-07 [facility] 00:00:00 Other 2016-09-15 [facility] 00:00:00 Other 2015-09-15 [facility] 00:00:00 Other 2015-02-13 [facility] 00:00:00 Other 2014-09-15 [facility] 00:00:00 Tonsillectomy 1993-11-15 [facility] Ventriculoperitoneal Shunt [facility] Creation of Lumboperitoneal [facility] Caesarean Section [facility] Plan of Care Planned Activity Planned Date Details Comments Source Future Scheduled 2023-02-20 COVID-19 VACCINE (#1) [facility] Test 02:20:08 [code = COVID-19 Hospital VACCINE (#1)] Future Scheduled 2023-02-20 Screening for malignant Zoroastrian Test 02:20:08 neoplasm of cervix Hospital (procedure) [code = 682344120] Future Scheduled 2023-02-20 INFLUENZA VACCINE [code Zoroastrian Test 02:20:08 = INFLUENZA VACCINE] [facility] Diagnostic Test 2022-12-30 sjogren antibody panel [facility] Pending 00:00:00 (ssa, ssb, ro, la), [facility] serum [code = sjogren antibody panel (ssa, ssb, ro, la), serum] Diagnostic Test 2022-12-30 DEANNA (antinuclear [place] [facility] Pending 00:00:00 antibodies) screen, Hospital Clinics serum [code = DEANNA (antinuclear antibodies) screen, serum] Diagnostic Test 2022-12-30 ESR (erythrocyte [place] [facility] Pending 00:00:00 sedimentation rate), [facility] blood [code = ESR (erythrocyte sedimentation rate), blood] Diagnostic Test 2022-12-30 rf [facility]rheumatoid factor[facility] serum [code = rf [facility] inics (rheumatoid factor), serum] Diagnostic Test 2022-12-30 erythrocyte [place] [facility] Pending 00:00:00 sedimentation rate by [facility] westergren method [code = erythrocyte sedimentation rate by westergren method] Diagnostic Test 2022-12-30 CBC w/ auto diff [code [facility] Pending 00:00:00 = CBC w/ auto diff] [facility] Test 2022-12-30 hemoglobin A1c, QN, [facility] Pending 00:00:00 blood [code = [facility] hemoglobin A1c, QN, blood] Diagnostic Test 2022-12-30 vitamin B12 + folate, [facility] Pending 00:00:00 serum or blood [code = [facility] vitamin B12 + folate, serum or blood] Diagnostic Test 2022-12-30 vitamin D, 25-hydroxy, [facility] Pending 00:00:00 total, serum [code = [facility] vitamin D, 25-hydroxy, total, serum] Diagnostic Test 2022-12-30 TSH + T4, serum [facility] 00:00:00 TSH + T4, serum] [facility] inics Diagnostic Test 2022-12-30 CMP, serum or plasma [facility] Pending 00:00:00 [code = CMP, serum or [facility] plasma] Diagnostic Test 2022-12-10 Weight of 24 hour [facility] Pending 00:00:00 Specimen [code = 3153-4] Diagnostic Test 2022-12-10 Cytomegalovirus Ab [facility] Pending 00:00:00 [Titer] in Serum or Plasma by Latex agglutination [code = 5121-9] Future Appointment 2023-12-10 Preethi Wetzel, [address] [facility] 00[facility]00:00 [place]; , [place] [address] Future Appointment 2023-05-18 Mala Callaway, [address] [facility] 00[facility]:00 [facility]; [place] [address] Encounters Start End Encounter Admission Attending Care Care Encounter Source Date/Time Date/Time Type Type Clinicians Facility Department ID 2023-03-16 2023-03-16 Outpatient JOHN_Rik [facility] [id number] 0230 [place] 00:00:00 00:00:00 502 [facility] 2023-02-03 2023-02-03 Outpatient JOHN_A [facility] [id number] 0230 [place] 00:00:00 00:00:00 322 [facility] 2023-01-09 2023-01-09 Outpatient GC_[facility]_ PRIV PRIV [id number] [facility] 00:[facility] 00:00:00 Zac [id number] Medica l 2022-12-30 2022-12-30 Mala rFank [facility] [place] 00:00:00 00:00:00 Teresa Callaway MD: [address] [facility] [address], [facility] B, [place], [place] CL[place]IC, [address] JOHN , Ph. 2022-12-10 2022-12-10 Outpatient GC_[facility]_ PRIV PRIV [id number] [facility] 00:00:00 00:00:00 Zac [id number] Medica l 2022-12-10 2022-12-10 Preethi [facility] 00:00:00 00:00:00 [facility] kelsy Wetzel MD: GC_[facility]_ [address] [facility], [place] [address] , Ph. 2022-12-07 2022-12-07 Outpatient JOHN_Rik [facility] [id number] 0230 [place] 00:00:00 00:00:00 215 [facility] Clin[facility] 2022-11-29 2022-11-29 Outpatient GC_[facility]_ PRIV PRIV [id number] [facility] 00:00:00 00:00:00 Zac [id number] Medica l 2022-11-19 2022-11-19 Outpatient JOHN_A [facility] [id number] 0230 [place] 00:00:00 00:00:00 105 [facility] i ty Hosp[facility] Clinics 2022-11-19 2022-11-19 [facility] [place] 05 [place] 00:00:00 00:00:00 Teresa Dalton [facility] coral MSN, MANUFACTURING TECHNICIAN, [facility] ty ALGEBRA TUTOR-C: [address] [place] [facility], Clinic s [address], [facility] [address], Dave Dalton, [place]ON[place] MSN, ALGEBRA TUTOR-C [address] , Ph. 2022-11-10 2022-11-10 Outpatient JOHN_Rik [facility] [id number] [place] 00:00:00 00:00:00 227 Commun i ty Hosp[facility] Clinics 2022-10-29 2022-10-29 Outpatient _[facility]_ PRIV PRIV [id number] [facility] 00:00:00 00:00:00 Zac [id number] Medica l 2022-10-12 2022-10-12 Outpatient KEERIK_Rik [facility] [id number] [place] 00:00:00 00:00:00 128 [facility] i ty [facility]osp[facility] Clinics 2022-10-12 2022-10-12 Mala Frank [facility] [place] 128 [place] 00:00:00 00:00:00 Teresa Callaway MD: [address] [facility] [address], [facility] l [address], HOSPITAL Clinic [place], [address] JOHN , Ph. 2022-08-27 2022-08-27 Outpatient JOHN_Rik [facility] [id number] 220 [place] 00:00:00 00:00:00 013 Commun i ty Hospita l Clinics 2022-08-27 2022-08-27 [facility] [place] 00:00:00 00:00:00 [facility] MSN, MANUFACTURING TECHNICIAN, Hospital - ty ALGEBRA TUTOR-C: [address] [place] [facility] [address] [facility], [facility] s [address], [facility] [address], [place] MSN, ALGEBRA TUTOR-C [address] , Ph. 2022-07-16 2022-07-16 Outpatient JOHN_Rik [facility] [id number] 219 [place] 00:00:00 00:00:00 901 [facility] ty [facility] 2022-07-16 2022-07-16 [facility] [place] 00:00:00 00:00:00 Krystle [facility] uni MSN, MANUFACTURING TECHNICIAN, Hospital - ty ALGEBRA TUTOR-C: [address] [place] [facility] [address] [facility], [facility] s [address], [facility] [address], [place], [place] MSN, ALGEBRA TUTOR-C [address] , Ph. 2022-07-16 2022-07-16 Outpatient Krystle [facility] [id number] 00:00:00 00:00:00 Kathia [id number] 2022-07-08 2022-07-08 Outpatient JOHN_Rik [facility] [id number] [place] 00:00:00 00:00:00 824 Commun i ty Hospita l Clinics 2022-07-08 2022-07-08 [facility] [place] 24 [place] 00:00:00 00:00:00 Krystle [facility] MSN, MANUFACTURING TECHNICIAN, [facility] ty ALGEBRA TUTOR-C: [address] [place] [facility] N. [facility] [place], [facility], Clinic s [address], [facility] [address], [place] MSN, ALGEBRA TUTOR-C [address] , Ph. 2022-07-08 2022-07-08 Outpatient Krystle [facility] [id number] 00:00:00 00:00:00 Kathia [id number] 2022-05-04 2022-05-04 Outpatient JOHN_Rik [facility] [id number] [place] 00:00:00 00:00:00 620 Commun i ty Hospita l Clinics 2022-05-04 2022-05-04 Mala Frank [facility] [place] 00:00:00 00:00:00 John [facility] Andreina moncada MD: [address] [facility], [place] Hospit a [address], [facility] [address], HOSPITAL Clinic [place], [address] JOHN , Ph. 2022-05-04 2022-05-04 Outpatient Mala Callaway [facility] [id number] 00:00:00 00:00:00 Monika [id number] 2021-12-22 2021-12-22 Outpatient _[facility]_ PRIV PRIV [id number] [facility] 10:42:00 10:42:00 Black_D [id number] Medica l 2021-11-27 2021-11-27 Outpatient TARAN [facility] [id number] [place] 04:26:00 04:26:00 113 Commun i ty Hospita l Clinics 2021-11-27 2021-11-27 Mala Frank [facility] [place] 113 [place] 00:00:00 00:00:00 John [facility] Andreina moncada MD: [address] [facility] - ty [facility] a [address], COMMUNITY l [address], HOSPITAL [place], [place] CLINIC, [address] JOHN , Ph. 2021-11-27 2021-11-27 Outpatient Mala Callaway [facility] [id number] 00:00:00 00:00:00 Monika [id number] 2021-11-17 2021-11-17 Outpatient JOHN_Rik [facility] [id number] [place] 09:39:00 09:39:00 103 Commun i ty Hospita l Clinics 2021-10-30 2021-10-30 Outpatient GC_[facility]_ PRIV PRIV [id number] [facility] 10:01:00 10:01:00 Rashard_William [id number] Medica l 2021-10-30 2021-10-30 Preethi [facility] [id number] [facility] 00:00:00 00:00:00 [facility] MD Rashard: GC_[facility]_ [address] [facility], [place] [address] , Ph. 2021-10-30 2021-10-30 Outpatient Preethi Wetzel PRIV PRIV [id number] 00:00:00 00:00:00 Perry [id number] 2021-10-29 2021-10-29 Outpatient GC_[facility]_ PRIV PRIV [id number] [facility] 12:29:00 12:29:00 Zac [id number] Medica l 2021-08-16 2021-08-16 Outpatient JOHN_Rik [facility] [id number] 210 [place] 07:22:00 07:22:00 002 Commun i ty Hospita [facility] Clinics 2021-08-07 2021-08-07 Outpatient JOHN_Rik [facility] [id number] [place] 09:48:00 09:48:00 923 Commun i ty Hospita [facility] Clinics 2021-08-07 2021-08-07 Outpatient Mala Callaway [facility] [id number] 00:00:00 00:00:00 Monika [id number] 2021-08-07 2021-08-07 Mala Frank [facility] [id number] 923 [place] 00:00:00 00:00:00 Teresa Callaway MD: [address] [facility] Hospit a [address], COMMUNITY l [address], HOSPITAL [place], [place] CLINIC, [address] JOHN , Ph. 2021-04-29 2021-04-29 Outpatient JOHN_Rik [facility] [id number] 209 [place] 09:44:00 09:44:00 615 Commun i ty Hospita l Clinics 2021-04-29 2021-04-29 Mala Frank [facility] [id number] 615 [place] 00:00:00 00:00:00 Teresa Callaway MD: [address] [facility] Hospit a [address], COMMUNITY l [address], H[place]P[facility] [place], [place] CLINIC, [address] JOHN , Ph. 2021-04-29 2021-04-29 Outpatient Mala Callaway [facility] [id number] 00:00:00 00:00:00 Monika [id number] 2021-01-13 2021-01-13 Outpatient CHIDIFFER_Rik [facility] [id number] 209 [place] 05:00:00 05:00:00 301 Commun i ty Hospita l Clinics 2021-01-13 2021-01-13 Outpatient Mala Callaway [facility] [id number] 00:00:00 00:00:00 Monika [id number] 2021-01-13 2021-01-13 Outpatient Mala Callaway [facility] [id number] 00:00:00 00:00:00 Monika [id number] 2021-01-13 2021-01-13 Mala Frank [facility] [place] 301 [place] 00:00:00 00:00:00 Teresa Callaway MD: [address] [facility] Hosp a [address], [facility] [address], [facility], [address] JOHN , Ph. 2021-01-02 2021-01-02 Outpatient KEFFER_A [facility] [id number] 0210 [place] 04:24:00 04:24:00 218 Commun i ty Hospita l Clinics 2020-12-26 2020-12-26 Outpatient ERIK_A [facility] [id number] [place] 03:00:00 03:00:00 211 Commun i ty Hospita l Clinics 2020-12-26 2020-12-26 Outpatient Mala Callaway [facility] [id number] 00:00:00 00:00:00 Monika [id number] 2020-12-26 2020-12-26 Mala Frank [facility] [place] 211 [place] 00:00:00 00:00:00 Teresa Callaway MD: [address] [facility] [address], [facility] [address], [place], [place], [address] JOHN , Ph. 2019-03-10 2019-03-10 Emergency E [facility] [id number] [facility] 09:36:00 09:36:00 Results Test Description Test Time Test Comments Results Result Comments Source pap, LB + HR HPV 2021-10-30 00:00:00 Test Item Value Reference Range Interpretation Comme nts LMP date: (test code = LMP date:) 11/15/2020 Pap, liquid-based (test code = Pap, nilm nilm liquid-based) source (liquid-based cytology): (test code = cervical-endocervical- vaginal source (liquid-based cytology):) [facility] [id number] 09:10:00 Test Item Value Reference Interpretation Comments Range ENTEROVIRUS PCR Negative Negative No Enterovir al RNA (test code = Detected.This t est was ENTEROVPCR) developed and i ts performance characteristics determined by [facility]. It has not been cleared or appr ovedby the Food and Drug Admini stration. The FDA hasdetermin ed that such clearance or ap proval is notnecessary.Pe rformed At: [facility] [id number] [place], [place] [id number] ra Matt MESSINA Ph:[phone] Spec Comments: CSF- SP FLUORO [id number] 14:17:00Patient Name: LEEROY BOJORQUEZ Unit No: [id number] EXAMS: CPT CODE: [id number] SP FLUORO [id number] PROCEDURE: Fluoroscopic guided diagnostic lumbar puncture one view RADIOLOGIST: Real Chin M.D. CLINICAL INDICATION: Pseudotumor cerebri COMPARISON: 12/25/2016 LOCATION: W1 TOTAL FLUOROSCOPY TIME: 47 seconds DESCRIPTION OF PROCEDURE: The patient was prepped and draped on the fluoroscopy table inthe usual sterile fashion. One-percent lidocaine was administered for local anesthesia. Using fluoroscopic guidance, a 22-gauge spinal needle was advanced into the thecal sac at L3-4. Opening pressure, obtained in the prone position, measured 8 cm of water. Approximately 11 cc of clear spinal fluid were removed and sent to the laboratory for the requested studies. There were no periprocedural complications. IMPRESSION: Technically successful fluoroscopic guided lumbar puncture. at 1417 Reported and signed by: REAL CHIN M.D. CC: Johny Reynolds MD Technologist: Joseph Santoro Time: DAP (Gy m2): Air Kerma (mGy): Trscr Dt/Tm: 06/09/2019 (141) by:[email or web address] Printed Date/Time: 06/09/2019 (6556) Name: LEEROY BOJORQUEZ [facility] Phys: Johny Kelly MD [address] CARRILLO: 1985 Age: 33 Sex: F [place] [address] Loc: P.SRG Exam Date: 06/09/2019 Status: REG [facility] PH: FAX: PAGE 1 Signed Report- SP PUNCTURE LUMBAR [id number] 14:16:00Patient Name: LEEROY BOJORQUEZ Unit No: [id number] EXAMS: CPT CODE: [id number] [place] [id number] PROCEDURE: Fluoroscopic guided diagnostic lumbar puncture one view RADIOLOGIST: Real Chin M.D. CLINICAL INDICATION: Pseudotumor cerebri COMPARISON: 12/25/2016 LOCATION: W1 TOTAL FLUOROSCOPY TIME: 47 seconds DESCRIPTION OF PROCEDURE: The patient was prepped and draped on the fluoroscopy table in the usual sterile fashion. One-percent lidocaine was administered for local anesthesia. Using fluoroscopic guidance, a 22-gauge spinal needle was advanced into the thecal sac at L3-4. Opening pressure, obtained in the prone position, measured 8 cm of water. Approximately 11 cc of clear spinalfluid were removed and sent to the laboratory for the requested studies. There were no periprocedural complications. IMPRESSION: Technically successful fluoroscopic guided lumbar puncture. at 1416 Reported and signed by: REAL CHIN M.D. CC: Johny Reynolds MD Technologist: Joseph Santoro Time: DAP (Gy m2): Air Kerma (mGy): Trscr Dt/Tm: 06/09/2019 (1416) by:[email or web address] Printed Date/Time: 06/09/2019 (1420) Name: LEEROY BOJORQUEZ [facility] Phys: Johny Kelly MD [address] GRAYB: 1985 Age:33 Sex: F [place] [facility]04 Loc: P.SRG Exam Date: 06/09/2019 Status: REG [facility] PH: FAX: PAGE 1 Signed ReportBASIC METABOLIC [id number] 12:19:00 Test Item Value Reference Range Interpretation Comments SODIUM (test code 141 MMOL/L 136-143 N = NA) POTASSIUM (test 4.2 MMOL/L 3.5-5.1 N code = K) CHLORIDE (test 105 MMOL/L 98-107 N code = CL) CARBON DIOXIDE 27 mmol/L 24-31 N (test code = CO2) GLUCOSE (test code 79 mg/dL 70-104 N = GLU) BLOOD UREA 8.6 MG/DL 7.0-21.0 N NITROGEN (test code = BUN) GLOMERULAR >=60 max >60 The estimated FILTRATION RATE estimate glomerular (test code = GFR) filtration rate is computed usingpatient ra ce, age (>18), sex, and serum creatinin e. If anyof the neede d data elements a re missing the Laboratory selena ot compute an estimation of t he glomerular filtration rate . CREATININE (test 0.8 mg/dL 0.8-1.5 N code = CREAT) CALCIUM (test code 9.0 mg/dL 8.8-10.2 N = CA) Spec Comments: PREOPDATE OF LAST MENSTRUAL PERIOD: 05/20/19HCG SERUM QUAL 2019-06-09 12:19:00 Test Item Value Reference Range Interpretation Comments HCG SERUM QUAL (test code = HCGQL) NEGATIVE NEGATIVE Spec Comments: PREOPDATE OF LAST MENSTRUAL PERIOD: 05/20/19BASIC METABOLIC PANEL 2019-06-09 12:18:00 Test Item Value Reference Range Interpretation Comments SODIUM (test code 141 MMOL/L 136-143 N = NA) POTASSIUM (test 4.2 MMOL/L 3.5-5.1 N code = K) CHLORIDE (test 105 MMOL/L 98-107 N code = CL) CARBON DIOXIDE 27 mmol/L 24-31 N (test code = CO2) GLUCOSE (test code 79 mg/dL 70-104 N = GLU) BLOOD UREA 8.6 MG/DL 7.0-21.0 N NITROGEN (test code = BUN) GLOMERULAR >=60 max >60 The estimated FILTRATION RATE estimate glomerular (test code = GFR) filtration rate is computed usingpatient ra ce, age (>18), sex, and serum creatinin e. If anyof the neede d data elements a re missing the Laboratory selena ot compute an estimation of t he glomerular filtration rate . CREATININE (test 0.8 mg/dL 0.8-1.5 N code = CREAT) CALCIUM (test code 9.0 mg/dL 8.8-10.2 N = CA) Spec Comments: PREOPDATE OF LAST MENSTRUAL PERIOD: 05/20/19HCG SERUM QUAL 2019-06-09 12:18:00 Test Item Value Reference Range Interpretation Comments HCG SERUM QUAL (test code = HCGQL) NEGATIVE Spec Comments: PREOPDATE OF LAST MENSTRUAL PERIOD: 05/20/19CBC W/AUTO DIFF 2019-06-09 12:04:00 Test Item Value Reference Range Interpretation Comments WHITE BLOOD CELL (test code = 4.8 x10 3/uL 4.8-10.8 N WBC) RED BLOOD CELL (test code = 4.39 x10 6/uL 4.20-5.40 N RBC) HEMOGLOBIN (test code = HGB) 13.4 g/dL 14.5-20 L HEMATOCRIT (test code = HCT) 40.3 % 37.0-47.0 N MEAN CELL VOLUME (test code = 91.8 fL 81.0-99.0 N MCV) MEAN CELL HGB (test code = MCH) 30.5 pg 27-31 N MEAN CELL HGB CONCENTRATION 33.3 G/DL 33-36.5 N (test code = MCHC) RED CELL DISTRIBUTION WIDTH 11.8 % 12.9-16.9 L (test code = RDW) PLATELET COUNT (test code = 258 150-440 N PLT) MEAN PLATELET VOLUME (test code 10.9 fL 8.9-12.4 N = MPV) NEUTROPHIL % (test code = NT%) 49.5 % 42.2-75.2 N LYMPHOCYTE % (test code = LY%) 40.3 % 20.5-51.1 N MONOCYTE % (test code = MO%) 7.1 % 1.7-9.3 N EOSINOPHIL % (test code = EO%) 2.5 % 0.0-7.0 N BASOPHIL % (test code = BA%) 0.4 % 0-2.5 N NEUTROPHIL # (test code = NT#) 2.36 x10 3/uL 1.80-7.70 N LYMPHOCYTE # (test code = LY#) 1.92 x10 3/uL 1.00-4.80 N MONOCYTE # (test code = MO#) 0.34 x10 3/uL 0.00-0.80 N EOSINOPHIL # (test code = EO#) 0.12 x10 3/uL 0.00-0.45 N BASOPHIL # (test code = BA#) 0.02 x10 3/uL 0.0-0.[address] BRAIN [id number] 17:11:15CLINICAL INDICATION: G43.909 Migraine, unsp, not intractable, without status migrainosusMODALITY: Siemens [employer] CT (Iterative dose reduction techniques are utilized.) TECHNIQUE: Noncontrast CT scanning was obtained through the brain. No intravenous contrast was administered. Brain and soft tissue windows are formatted. Coronal and sagittal images are reformatted.CTDI: 43 mGyIMPRESSION:Right transfrontal shunt in place with stable to slightly decompressed ventricular system compared to 2017.FINDINGS :COMPARISON: MRI brain 12/17/2016A right trans frontal shunt is now identified with the tip terminating in the frontal horn of the lateral ventricle midline. The right lateral ventricle is slightly preferentially decompressed. Ventricular size is slightly decreased to stable when compared to prior MRIbefore shunting. Note that there was no ventriculomegaly before shunting.There are no acute infarcts, hemorrhages or extra-axial fluid collections.There are no mass lesions. There are no focal areas ofedema or shift of midline structures.There are no significant white matter lesions.Sella, parasellarstructures, craniocervical junction and internal auditory canals are within normal limits on noncontrast CT imaging.The brainstem and cerebellum are unremarkable.Extracranial soft tissues are unremarkable.
[2023-04-12] MEDS ORDERED: NA CHLORIDE 0.9% 500 ML ONE (14:40)
[2023-04-12 14:50] LABS: Hematocrit 39.5 % (36.0-45.0); Lymphocytes % 21.1 % (15.3-44.8); MCV 89.2 fL (80-100); MPV 9.6 fL (7.6-11.3); RBC Red Blood Cell Count 4.43 M/uL (3.86-4.86)
--- NOTE | 2023-04-12 14:52 | RAD REPORT ---
EXAM DESCRIPTION: CT - Head Brain Wo Cont - 04/12/2023 2:27 pm CLINICAL HISTORY: palacios, hx of of shunt;Fever COMPARISON: Head Brain Wo Cont dated 11/15/2016; HEAD BRAIN W O CONTRAST dated 05/02/2015 TECHNIQUE: All CT scans are performed using dose optimization technique as appropriate and may inclu de automated exposure control or mA/KV adjustment according to patient size. FINDINGS: No intracranial hemorrhage, hydrocephalus or extra-axial fluid collection.No areas of brai n edema or evidence of midline shift. Right frontal approach ventriculostomy with tip in the region o f the foramen of Monro. The right lateral ventricle is slit-like. The left lateral ventricle is unrem arkable. The paranasal sinuses and mastoids are clear. The calvarium is intact. IMPRESSION: No acute intracranial abnormality. Right frontal approach ventriculostomy. No hydroceph alus. The right lateral ventricle is slit-like. This is of uncertain significance/acuity without base line post ventriculostomy exams.
[2023-04-12 14:59] LABS: Protime INR 0.92; SARS-CoV-2 Antigen Rapid Res Negative (Negative)
[2023-04-12 15:04] LABS: Potassium 3.2 mEq/L (3.5-5.1)
--- NOTE | 2023-04-12 15:04 | RAD REPORT ---
EXAM DESCRIPTION: RAD - Shuntogram - 04/12/2023 2:56 pm CLINICAL HISTORY: headache, feve COMPARISON: Abdomen Exam Limited dated 11/24/2019 FINDINGS/IMPRESSION: Right frontal approach ventriculostomy. No evidence of shunt discontinuity. The shunt terminates overlying the left upper quadrant.
[2023-04-12 15:05] LABS: Albumin 3.4 g/dL (3.4-5.0); Bilirubin Total 0.8 mg/dL (0.2-1.0); Protein, Total 6.8 g/dL (6.4-8.2)
[2023-04-12] MEDS ORDERED: ACETAMINOPHEN 500 MG TAB ONE (15:35)
[2023-04-12] MEDS ORDERED: KETOROLAC 30 MG/ML INJ ONE (15:35)
[2023-04-12 15:36] LABS: Specific Gravity > 1.030 (1.005-1.030); Urine Bacteria <20 /HPF (<20); Urine Bilirubin NEGATIVE (Negative); Urine Blood Negative (Negative); Urine Clarity Turbid (Clear); Urine Color Yellow (Yellow); Urine Glucose NEGATIVE (Negative); Urine Mucus 4+ /HPF (None Seen); Urine Protein 2+ (Negative); Urine RBC <5 /HPF (None Seen); Urine Urobilinogen Normal (Normal)
--- NOTE | 2023-04-12 15:53 | ER ---
Nurse's Notes [facility] Name: Kamille Bojorquez Age: 37 yrs Sex: Female : 1985 Arrival Date: 04/12/2023 Time: 13:55 Bed 8 Private MD: Diagnosis: Respiratory syncytial virus as the cause of diseases classified elsewhere;UTI/ Urinary tract infection, site not specified Presentation: 04/12 14:07 Chief complaint: Patient states: Headache and severe neck pain along with fever earlier nj1 this morning. Ibuprofen taken about 2-3 hours ago. 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 Coronavirus screen: Vaccine status: Patient reports receiving the 2nd dose of the covid vaccine. Ebola Screen: Patient denies travel to an Ebola-affected area in the 21 days before illness onset. Initial Sepsis Screen: Does the patient meet any 2 criteria? HR > 90 bpm. No. Patient's initial sepsis screen is negative. Does the patient have a suspected source of infection? No. Patient's initial sepsis screen is negative. Risk Assessment: Do you want to hurt yourself or someone else? Patient reports no desire to harm self or others. Onset of symptoms was April 12, 2023. 14:07 Method Of Arrival: Ambulatory [facility] 14:07 Acuity: ARMANDO 3 nj1 Triage Assessment: 15:24 Headache History: The patient has had previous headaches and this one is similar to 1 previous episodes. 16:11 Pain: Also complains of. [facility] 16:12 Pain: Pain began this morning. 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 - Social history:: Smoking status: Patient denies any tobacco usage or history of. Screenin:36 [facility] ED Fall Risk Assessment (Adult) Score/Fall Risk Level 0 - 2 = Low Risk ll1 Oriented to surroundings, Maintained a safe environment, Educated pt \T\ family on fall prevention, incl call for assistance when getting out of bed, Hourly rounding (assess needs \T\ fall precautionary measures) done. Abuse screen: Denies threats or abuse. Nutritional screening: No deficits noted. Tuberculosis screening: No symptoms or risk factors identified. Assessment: 14:04 General: Appears uncomfortable, Behavior is calm, cooperative, appropriate for age. ll1 General: Reports fever for feeling ill for fatigue for. Pain: Complains of pain in head/neck Pain currently is 8 out of 10 on a pain scale. Quality of pain is described as aching, throbbing. Neuro: Level of Consciousness is awake, alert, obeys commands, Oriented to person, place, time, situation, Appropriate for age Gait is steady, Facial symmetry appears normal, Reports headache. Musculoskeletal: Circulation, motion, and sensation intact. Capillary refill < 3 seconds, Reports neck. 14:28 Reassessment: No changes from previously documented assessment. To CT via stretcher. ll1 15:20 Reassessment: No changes from previously documented assessment. Dr. Todd at . 1 15:33 Reassessment: No changes from previously documented assessment. Patient and/or family ll1 updated on plan of care and expected duration. Pain level reassessed. Patient is alert, oriented x 3, equal unlabored respirations, skin warm/dry/pink. 16:10 Reassessment: No changes from previously documented assessment. Patient and/or family ll1 updated on plan of care and expected duration. Pain level reassessed. Patient is alert, oriented x 3, equal unlabored respirations, skin warm/dry/pink. Vital Signs: 14:07 BP 121 / 86; Pulse 104; Resp 18; Temp 99.6(O); Pulse Ox 99% on R/A; Weight 99.79 kg; nj1 Height 5 ft. 5 in. ; Pain 8/10; 15:22 BP 115 / 97; Pulse 93; Resp 16; ll1 16:09 BP 100 / 71; Pulse 81; Resp 15; Pain 6/10; ll1 14:07 Body Mass Index 36.61 (99.79 kg, 165.1 cm) nj 14:07 Pain Scale: Adult nj 16:09 Pain Scale: Adult ll1 16:09 Dr. Todd notified she is still in pain. No further orders received. ll1 ED Course: 13:59 Patient arrived in ED. mr 14:08 Omari Todd MD is Attending Physician. bs3 14:11 Triage completed. nj1 14:13 Arm band placed on right wrist. nj1 14:16 Chuckie Duke RN is Primary Nurse. ll1 14:20 Inserted saline lock: 20 gauge in left antecubital area, using aseptic technique. Blood ll1 collected. 14:28 CT Head Brain wo Cont In Process Unspecified. EDMS 14:36 Patient has correct armband on for positive identification. Bed in low position. Call ll1 light in reach. Client placed on continuous cardiac and pulse oximetry monitoring. NIBP monitoring applied. site monitor on. 14:58 Shuntogram XRAY In Process Unspecified. EDMS 16:11 No provider procedures requiring assistance completed. IV discontinued, intact, ll1 bleeding controlled, No redness/swelling at site. Pressure dressing applied. Administered Medications: 15:15 Drug: NS 0.9% IV 500 ml Route: IV; Rate: bolus; Site: left antecubital; ll1 16:10 Follow up: Response: No adverse reaction; IV Status: Completed infusion; IV Intake: ll1 500ml 15:33 Drug: Ketorolac IVP 15 mg Route: IVP; Site: left antecubital; ll1 16:10 Follow up: Response: No adverse reaction; Pain is decreased; RASS: Alert and Calm (0) ll1 15:33 Drug: Acetaminophen PO 1000 mg Route: PO; ll1 16:11 Follow up: Response: No adverse reaction; Pain is decreased; RASS: Alert and Calm (0) ll1 Medication: 14:37 VIS not applicable for this client. ll1 Intake: 16:10 IV: 500ml; Total: 500ml. ll1 Outcome: 15:53 Discharge ordered by . bs3 16:12 Discharged to home ambulatory. ll1 16:12 Condition: stable 16:12 Discharge instructions given to patient, Instructed on discharge instructions, follow up and referral plans. medication usage, Demonstrated understanding of instructions, follow-up care, medications, Prescriptions given X 1. 16:12 Patient left the ED. ll1 Signatures: Dispatcher [employer] [facility] Danielle Ralph mr Chuckie Duke, RIO RN ll1 Omari Todd MD MD bs3 Mimi Andersen, RN RN nj1
--- NOTE | 2023-04-12 15:53 | EDPHYS ---
Physician Documentation [facility] Name: Kamille Bojorquez Age: 37 yrs Sex: Female : 1985 Arrival Date: 04/12/2023 Time: 13:55 Bed 8 Private MD: ED Physician Omari Todd HPI: 04/12 14:19 This 37 yrs old Female presents to ER via Ambulatory with complaints of bs3 Headache, Fever, Neck pain. 14:19 37-year-old female history of idiopathic intracranial hypertension status post TRANSLATOR DEAF shunt bs3 presents with headache fever neck pain her symptoms started this morning she denies any other associated symptoms she reports not following up with her neurosurgeon and therefore is concerned her shunt was placed approximately 4 years ago denies lightheadedness dizziness denies cough denies abdominal pain nausea vomiting urinary symptoms or anything else bothering her no sick contacts no recent travel. 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 - Social history:: Smoking status: Patient denies any tobacco usage or history of. ROS: 14:19 Constitutional: Negative for fever, chills bs3 14:19 All other systems are negative. Exam: 14:19 Constitutional: This is a well developed, well nourished patient who is awake, alert, bs3 and in no acute distress. Head/Face: Normocephalic, atraumatic. Eyes: Pupils equal round and reactive to light, extra-ocular motions intact. Lids and lashes normal. ENT: mmm, no posterior phyarngeal erythema Neck: Trachea midline, no thyromegaly, no neck stiffness, pt reports neck pain with rom Chest/axilla: Normal chest wall appearance and motion. Nontender with no deformity. No lesions are appreciated. Cardiovascular: tachycardic with a normal S1 and S2. symmetric pulses in upper extremities Respiratory: Lungs have equal breath sounds bilaterally, clear to auscultation, no respiratory distress MS/ Extremity: Pulses equal, no cyanosis. Neurovascular intact. Full, normal range of motion. Neuro: Awake and alert, GCS 15, oriented to person, place, time, and situation. Cranial nerves II-XII grossly intact. Motor strength 5/5 in all extremities. Sensory grossly intact. Psych: Awake, alert, with orientation to person, place and time. Behavior, mood, and affect are within normal limits. Vital Signs: 14:07 BP 121 / 86; Pulse 104; Resp 18; Temp 99.6(O); Pulse Ox 99% on R/A; Weight 99.79 kg; nj1 Height 5 ft. 5 in. ; Pain 8/10; 15:22 BP 115 / 97; Pulse 93; Resp 16; ll1 16:09 BP 100 / 71; Pulse 81; Resp 15; Pain 6/10; ll1 14:07 Body Mass Index 36.61 (99.79 kg, 165.1 cm) nj1 14:07 Pain Scale: Adult nj1 16:09 Pain Scale: Adult ll1 16:09 Dr. Todd notified she is still in pain. No further orders received. ll1 MDM: 14:08 Patient medically screened. bs3 14:19 Data reviewed: vital signs, nurses notes. 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 She is non compliant w f/u and no follow up for over 2 years. . 15:02 ED course: EKG normal sinus rhythm at [address] elevations or depressions QTc 433 as bs3 interpreted by myself. 15:24 ED course: pt reassessed, feeling better. bs3 15:47 ED course: ua conssitent with possible uti, although no clear uti symptoms, will cover bs3 with antibitocs, return prec given. 15:51 ED course: ua difficult to interpret, grossly positive, discussed w patient who weighed bs3 risk/benefits of antibiotics and will prescribe, doubt perinephric abscsess or other serious complication. Return prec given. . 04/12 14:15 Order name: Blood Culture Adult (2) 3 04/12 14:15 Order name: CBC with Diff; Complete Time: 15:02 [facility] 04/12 14:15 Order name: CMP; Complete Time: 15:07 [facility] 04/12 14:15 Order name: Lactate w/ 2H reflex if indic.; Complete Time: 15:07 [facility] 04/12 14:15 Order name: Protime (+inr); Complete Time: 15:02 [facility] 04/12 14:15 Order name: Ptt, Activated; Complete Time: 15:02 [facility] 04/12 14:15 Order name: Urinalysis w/ reflexes; Complete Time: 15:47 [facility] 04/12 14:15 Order name: SARS-COV-2 Antigen Rapid; Complete Time: 15:02 [facility] 04/12 14:15 Order name: Influenza Screen (a \T\ B); Complete Time: 15:15 [facility] 04/12 14:15 Order name: RSV; Complete Time: 15:15 04/12 15:41 Order name: Urine Culture EDIN 04/12 14:15 Order name: CT Head Brain wo Cont; Complete Time: 15:02 [facility] 04/12 14:18 Order name: Shuntogram XRAY; Complete Time: 15:07 [facility] 04/12 14:15 Order name: EKG; Complete Time: 14:16 3 04/12 14:15 Order name: Accucheck; Complete Time: 15:21 [facility] 04/12 14:15 Order name: Cardiac monitoring; Complete Time: 15:13 [facility] 04/12 14:15 Order name: EKG - Nurse/Tech; Complete Time: 15:13 [facility] 04/12 14:15 Order name: IV Saline Lock - Large Bore; Complete Time: 14:27 [facility] 04/12 14:15 Order name: Labs collected and sent; Complete Time: 14:27 [facility] 04/12 14:15 Order name: O2 Per Protocol; Complete Time: 14:27 [facility] 04/12 14:15 Order name: O2 Sat Monitoring; Complete Time: 14:27 [facility] 04/12 14:15 Order name: Vital Signs; Complete Time: 14:27 bs3 Administered Medications: 15:15 Drug: NS 0.9% IV 500 ml Route: IV; Rate: bolus; Site: left antecubital; ll1 16:10 Follow up: Response: No adverse reaction; IV Status: Completed infusion; IV Intake: ll1 500ml 15:33 Drug: Ketorolac IVP 15 mg Route: IVP; Site: left antecubital; ll1 16:10 Follow up: Response: No adverse reaction; Pain is decreased; RASS: Alert and Calm (0) ll1 15:33 Drug: Acetaminophen PO 1000 mg Route: PO; ll1 16:11 Follow up: Response: No adverse reaction; Pain is decreased; RASS: Alert and Calm (0) ll1 Disposition Summary: 04/12/23 15:53 Discharge Ordered Location: Home bs3 Problem: new bs3 Symptoms: have improved bs3 Condition: Stable bs3 Diagnosis - Respiratory syncytial virus as the cause of diseases classified elsewhere bs3 - UTI/ Urinary tract infection, site not specified bs3 Followup: bs3 - With: Private Physician - When: 5 - 6 days - Reason: Re-evaluation by your physician Discharge Instructions: - Discharge Summary Sheet bs3 - Respiratory Syncytial Virus Infection, Pediatric bs3 - Urinary Tract Infection, Adult bs3 Forms: - Work release form [id number] - Medication Reconciliation Form bs3 - Thank You Letter bs3 - Antibiotic Education bs3 - Prescription Opioid Use bs3 Prescriptions: - Cephalexin 500 mg Oral Capsule - take 1 capsule by ORAL route every 12 hours for 7 days; 14 capsule; Refills: 0, bs3 Product Selection Permitted Signatures: Dispatcher [employer] Chuckie Jones RN RN ll1 Omari Todd MD MD bs3 Mimi Andersen RN RN nj1
[2023-04-12 16:17] VITALS: TEMP 99.6; O2SAT 99
[2023-04-12 16:21] VITALS: BP 100/71
--- NOTE | 2023-04-14 07:11 | EKG ---
Test Date: 2023-04-12 Test Time: 15:00:33 [employer] Instructor: MARIO MEASUREMENT RESULTS: Intervals: Rate: 99 FL: 146 QRSD: 72 QT: 338 QTc: 433 [place]: P: 40 FL: 146 QRS: 59 T: 17 INTERPRETIVE STATEMENTS: Normal sinus rhythm Low voltage QRS Nonspecific T wave abnormality Abnormal ECG Compared to ECG 11/15/2016 12:22:18 Low QRS voltage now present T-wave abnormality now present Electronically Signed On 04-14-23 07:07:07 CDT by Andriy Plata
== END 2023-04-12 16:12 | disposition home or self-care (01) ==
LOC: ER 13:55
DX: N39.0 Urinary tract infection, site not specified (principal); B97.4 Respiratory syncytial virus as the cause of diseases classified elsewhere; Z98.2 Presence of cerebrospinal fluid drainage device; Z20.822 Contact with and (suspected) exposure to COVID-19; I10 Essential (primary) hypertension; Z88.1 Allergy status to other antibiotic agents; Z88.2 Allergy status to sulfonamides; Z91.048 Other nonmedicinal substance allergy status
CPT/HCPCS: 96361; 93005; 87040; 87088; 85025; 81001; 87086; 36415; 85610; 83605; 85730; 80053; 87807; 87804 ×2; 70450; 75809; 49427; 96374; 99285; 87811; J7040

== ENCOUNTER 2024-10-22 13:08 | Emergency (ER) | payer BC ==
--- NOTE | 2024-10-22 15:30 | RAD REPORT ---
EXAM: Chest Pa And Lat (2 Views) HISTORY: Cough;Fever COMPARISON: None. FINDINGS: LUNGS/PLEURA: Consolidative airspace disease in the right lung base. MEDIASTINUM: The mediastinal silhouette is within normal limits. CARDIAC: The cardiac silhouette is within normal limits. UPPER ABDOMEN: No significant abnormality. BONES: No acute fracture. 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 IMPRESSION: Consolidation at the right lung base consistent with pneumonia. Consider short-term follow-up chest r adiograph in 4-6 weeks to ensure resolution.
[2024-10-22] MEDS ORDERED: ONDANSETRON 4 MG (ODT) TAB ONE (16:00)
[2024-10-22] MEDS ORDERED: ACETAMINOPHEN 500 MG TAB ONE (16:00)
[2024-10-22 16:31] LABS: SARS-CoV-2 Antigen CONTROL BLUE LINE VIS/BG OK; SARS-CoV-2 Antigen Rapid Res Negative (Negative)
--- NOTE | 2024-10-22 16:48 | EDPHYS ---
Physician Documentation [facility] Name: Kamille Bojorquez Age: 38 yrs Sex: Female : 1985 Arrival Date: 10/22/2024 Time: 13:08 Bed 5 Private MD: ED Physician Ronny Sharif HPI: 10/22 14:35 This 38 yrs old Female presents to ER via Ambulatory with complaints of Chest Pain, Flu cp Symptoms. 14:35 The patient or guardian reports chest pain that is located primarily in the anterior cp chest below breast. 14:35 The pain does not radiate. Associated signs and symptoms: Pertinent positives: cough, cp shortness of breath. The chest pain is described as aching. Modifying factors: the symptoms are aggravated by cough. Patient reports family members recently tested positive for flu. 14:35 Patient reports she is currently taking prescribed Amoxicillin. cp Historical: - Allergies: 14:06 Bactrim; aa5 14:06 Iodinated Contrast Media - IV Dye; aa5 14:06 Sulfa (Sulfonamide Antibiotics); aa5 - PMHx: 14:06 Hypertensive disorder; Idiopathic Intracranial Hypertension; psuedo tumor cerebrine; aa5 - PSHx: 14:06 section; section; [employer] shunt; aa5 - Immunization history:: Flu vaccine is up to date. - Infectious Disease History:: Denies. - Social history:: Smoking status: Patient denies any tobacco usage or history of. ROS: 14:40 Constitutional: Positive for body aches, chills, fever, cp 14:40 Eyes: Negative for injury, pain, redness, and discharge, cp 14:40 Cardiovascular: Positive for chest pain, with cough, Negative for edema, palpitations, 14:40 Respiratory: Positive for cough, "sounds productive", 14:40 Neuro: Negative for altered mental status, dizziness, headache, weakness, 14:40 All other systems are negative, Exam: 14:45 Constitutional: The patient appears in no acute distress, alert, awake, cp non-diaphoretic, non-toxic, well developed, well nourished, obese, 14:45 Head/Face: Normocephalic, atraumatic. cp 14:45 Eyes: Periorbital structures: appear normal, Conjunctiva: normal, no exudate, no injection, Sclera: no appreciated abnormality, Lids and lashes: appear normal, 14:45 ENT: External ear(s): no acute changes, Nose: is normal, Mouth: Lips: moist, Oral mucosa: moist, Posterior pharynx: Airway: no evidence of obstruction, patent, Tonsils: no enlargement, no exudate, erythema, that is mild, exudate, is not appreciated, 14:45 Neck: ROM/movement: is normal, is supple, no meningismus, no nuchal rigidity, 14:45 Chest/axilla: Inspection: normal, 14:45 Cardiovascular: Rate: tachycardic, Rhythm: regular, Edema: is not appreciated, JVD: is not appreciated, 14:45 Respiratory: the patient does not display signs of respiratory distress, Respirations: normal, no use of accessory muscles, no retractions, labored breathing, is not present, Breath sounds: decreased breath sounds, are not appreciated, stridor, is not appreciated, wheezing: is not appreciated, 14:45 Abdomen/GI: Inspection: abdomen appears normal, Palpation: abdomen is soft and non-tender, in all quadrants, 14:45 Back: pain, is absent, ROM is normal, 14:45 Skin: no rash present. Vital Signs: 14:04 BP 121 / 99; Pulse 102; Resp 18 S; Temp 100.2(O); Pulse Ox 99% on R/A; Weight 95.25 kg aa5 (R); Height 5 ft. 5 in. (R); 16:08 BP 112 / 88; Pulse 104; Pulse Ox 96% on R/A; Pain 0/10; tm6 17:02 BP 104 / 78; Pulse 101; Resp 20; Temp 99; Pulse Ox 98% on R/A; ph 14:04 Body Mass Index 34.95 (95.25 kg, 165.1 cm) aa5 16:08 Pain Scale: Adult tm6 MDM: 14:19 Medical Screening Exam initiated cp 16:00 Differential diagnosis: acute myocardial infarction, acute pericarditis, chest wall cp pain, pericarditis, pleurisy, pneumonia, pneumothorax, pulmonary embolus. 16:47 Data reviewed: vital signs, nurses notes, lab test result(s), radiologic studies, plain cp films, and as a result, I will discharge patient. 16:47 I considered the following discharge prescriptions or medication management in the emergency department Medications were administered in the Emergency Department. See MAR. Counseling: I had a detailed discussion with the patient and/or guardian regarding the historical points, exam findings, and any diagnostic results supporting the discharge/admit diagnosis, lab results, radiology results, to return to the emergency department if symptoms worsen or persist or if there are any questions or concerns that arise at home. Response to treatment: the patient's symptoms have mildly improved after treatment, and as a result, I will discharge patient. 10/22 14:32 Order name: SARS RAPID; Complete Time: 16:52 cp 10/22 16:53 Interpretation: Reviewed. cp 10/22 14:32 Order name: RSV; Complete Time: 16:52 cp 10/22 14:32 Order name: Influenza Screen (a \\T\\ B); Complete Time: 16:52 cp 10/22 14:32 Order name: XRAY Chest Pa And Lat (2 Views); Complete Time: 16:25 cp 10/22 16:25 Interpretation: Report reviewed. cp Administered Medications: 16:08 Drug: Acetaminophen PO 1000 mg PO once Route: PO; tm6 17:01 Follow up: Response: No adverse reaction; Temperature is decreased ph 16:08 Drug: Ondansetron PO 4 mg PO once Route: PO; tm6 17:01 Follow up: Response: No adverse reaction; Nausea is decreased ph 17:01 Drug: AZITHromycin PO 500 mg PO once Route: PO; ph 17:01 Follow up: Response: No adverse reaction; Medication administered at discharge. ph Disposition Summary: 10/22/24 16:48 Discharge Ordered Notes: Location: Home cp Problem: new cp Symptoms: have improved cp Condition: Stable cp Diagnosis - Pneumonia in diseases classified elsewhere cp Followup: cp - With: Private Physician - When: 2 - 3 days - Reason: Worsening of condition Discharge Instructions: - Discharge Summary Sheet cp - Community-Acquired Pneumonia, Adult cp Forms: - Work release form ph - Medication Reconciliation Form cp - Antibiotic Education cp - Prescription Opioid Use cp - Patient Portal Instructions cp - Leadership Thank You Letter cp Prescriptions: - Bromfed DM 2-30-10 mg/5 mL Oral syrup - administer 10 milliliter ORAL route every 6-8 hours as needed for cold cp symptoms; 240 milliliter; Refills: 0, Product Selection Permitted - Ibuprofen 800 mg Oral Tablet - take 1 tablet ORAL route every 8 hours As needed take with food; 30 tablet; cp Refills: 0, Product Selection Permitted - Zithromax Z-Chapito 250 mg Oral Tablet - take 1 tablet ORAL route as directed for 5 days Day 1 - take two (2) tablets cp one time. Day 2, 3, 4 , 5 take one (1) tablet once daily.; 6 tablet; Refills: 0, Product Selection Permitted Signatures: Dispatcher [employer] EDVA Mary Chance, RN RN aa5 Rosa Simon RN RN ph Nik Carreon PA PA Maty Banerjee RN RN tm6 Corrections: (The following items were deleted from the chart) 14:32 14:32 SARS-COV-2 Antigen Rapid+I.LAB.BRZ ordered. EDMS EDMS 14:32 14:32 Respiratory Syncytial Virus Ag+BA.LAB.BRZ ordered. EDMS EDMS 14:32 14:32 Influenza Screen (A \\T\\ B)+BA.LAB.BRZ ordered. EDVA EDMS 10/23 16:35 14:35 This 38 yrs old Female presents to ER via Ambulatory with complaints of Chest cp Pain, Flu Symptoms. cp
--- NOTE | 2024-10-22 16:48 | ER ---
Nurse's Notes [facility] Name: Kamille Bojorquez Age: 38 yrs Sex: Female : 1985 Arrival Date: 10/22/2024 Time: 13:08 Bed 5 Private MD: Diagnosis: Pneumonia in diseases classified elsewhere Presentation: 10/22 14:04 Chief complaint: Patient states: "I am having cough, chest pain, and fever and my whole aa5 family was sick with the flu". Coronavirus screen: cough unrelated to allergies, fever. Ebola Screen: Patient denies travel to an Ebola-affected area in the 21 days before illness onset. Initial Sepsis Screen: Does the patient meet any 2 criteria? HR > 90 bpm. Does the patient have a suspected source of infection? No. Patient's initial sepsis screen is negative. Risk Assessment: Do you want to hurt yourself or someone else? Patient reports no desire to harm self or others. Onset of symptoms was October 2024. 14:04 Method Of Arrival: Ambulatory aa5 14:04 Acuity: ARMANDO 3 aa5 Historical: - Allergies: 14:06 Bactrim; aa5 14:06 Iodinated Contrast Media - IV Dye; aa5 14:06 Sulfa (Sulfonamide Antibiotics); aa5 - PMHx: 14:06 Hypertensive disorder; Idiopathic Intracranial Hypertension; psuedo tumor cerebrine; aa5 - PSHx: 14:06 section; section; [employer]ULPER shunt; aa5 - Immunization history:: Flu vaccine is up to date. - Infectious Disease History:: Denies. - Social history:: Smoking status: Patient denies any tobacco usage or history of. Screenin:03 [facility] ED Fall Risk Assessment (Adult) History of falling in the last 3 months, ph including since admission No falls in past 3 months (0 pts) Confusion or Disorientation No (0 pts) Intoxicated or Sedated No (0 pts) Impaired Gait No (0 pts) Mobility Assist Device Used No (0 pt) Altered Elimination No (0 pt) Score/Fall Risk Level 0 - 2 = Low Risk Oriented to surroundings, Maintained a safe environment, Hourly rounding (assess needs \\T\\ fall precautionary measures) done, Used ambulatory aids as needed (educated on \\T\\ assisted with). Abuse screen: Denies threats or abuse. Denies injuries from another. Nutritional screening: No deficits noted. Tuberculosis screening: No symptoms or risk factors identified. Assessment: 16:04 General: Appears in no apparent distress. comfortable, well groomed, Behavior is calm, ph cooperative, appropriate for age, Reports chills for fever for. Pain: Complains of pain in chest Pain does not radiate. Pain began gradually. Neuro: Level of Consciousness is awake, alert, obeys commands, Oriented to person, place, time, situation. Cardiovascular: Reports chest pain. Respiratory: Reports shortness of breath cough that is Airway is patent Respiratory effort is even, unlabored, Respiratory pattern is regular, symmetrical. Derm: Skin is pink, warm \\T\\ dry. Vital Signs: 14:04 BP 121 / 99; Pulse 102; Resp 18 S; Temp 100.2(O); Pulse Ox 99% on R/A; Weight 95.25 kg aa5 (R); Height 5 ft. 5 in. (R); 16:08 BP 112 / 88; Pulse 104; Pulse Ox 96% on R/A; Pain 0/10; tm6 17:02 BP 104 / 78; Pulse 101; Resp 20; Temp 99; Pulse Ox 98% on R/A; ph 14:04 Body Mass Index 34.95 (95.25 kg, 165.1 cm) aa5 16:08 Pain Scale: Adult tm6 ED Course: 13:12 Patient arrived in ED. mg5 14:04 Arm band placed on. aa5 14:06 Triage completed. aa5 14:19 Nik Carreon PA is PHCP. cp 14:19 Ronny Sharif MD is Attending Physician. cp 15:07 XRAY Chest Pa And Lat (2 Views) In Process Unspecified. EDMS 15:50 Rosa Simon, RN is Primary Nurse. ph 16:03 Patient has correct armband on for positive identification. Bed in low position. Call ph light in reach. Side rails up X 1. Pulse ox on. NIBP on. Door closed. Noise minimized. Warm blanket given. 16:04 Patient maintains SpO2 saturation greater than 95% on room air. ph 16:08 Influenza Screen (a \\T\\ B) Sent. tm6 16:08 RSV Sent. tm6 16:08 SARS RAPID Sent. tm6 17:02 No provider procedures requiring assistance completed. Patient did not have IV access ph during this emergency room visit. Administered Medications: 16:08 Drug: Acetaminophen PO 1000 mg PO once Route: PO; tm6 17:01 Follow up: Response: No adverse reaction; Temperature is decreased ph 16:08 Drug: Ondansetron PO 4 mg PO once Route: PO; tm6 17:01 Follow up: Response: No adverse reaction; Nausea is decreased ph 17:01 Drug: AZITHromycin PO 500 mg PO once Route: PO; ph 17:01 Follow up: Response: No adverse reaction; Medication administered at discharge. ph Medication: 16:03 VIS not applicable for this client. ph Outcome: 16:48 Discharge ordered by MD. cp 17:02 Discharged to home ambulatory, ph 17:02 Condition: good 17:02 Discharge instructions given to patient, Instructed on discharge instructions, follow up and referral plans. medication usage, Demonstrated understanding of instructions, follow-up care, medications, Prescriptions given X 3, 17:03 Patient left the ED. ph Signatures: Dispatcher [employer] EDMS Mary Chance RN RN aa5 Rosa Simon RN RN ph Nik Carreon, BRYON PA Kathrin Gracia 5 Maty Vyas RN RN tm6 Corrections: (The following items were deleted from the chart) 14:06 14:06 Arm band placed on aa5 aa5
[2024-10-22] MEDS ORDERED: AZITHROMYCIN 250 MG TAB ONE (16:57)
[2024-10-22 19:35] VITALS: BP 104/78; TEMP 99; O2SAT 98
== END 2024-10-22 17:03 | disposition home or self-care (01) ==
LOC: ER 13:08
DX: J18.9 Pneumonia, unspecified organism (principal); Z11.52 Encounter for screening for COVID-19; Z98.2 Presence of cerebrospinal fluid drainage device
CPT/HCPCS: 36415; 87807; 87804 ×2; 71046; 99284; 87811; Q0162